=== PATIENT | female | born 1940 | race Caucasian/White ===

== ENCOUNTER 2019-03-30 07:07 | Outpatient (CLI) | payer SELFPAY | END 2019-03-30 07:08 | disposition home or self-care (01) | LOC: LAB 07:07 | DX: Z01.89 Encounter for other specified special examinations (principal) | CPT/HCPCS: 36415 ==

== ENCOUNTER 2021-11-09 01:10 | Outpatient (CLI) | payer MEDICARE | END 2021-11-09 01:11 | disposition critical access hospital (66) | LOC: EMS 01:10 | DX: Z04.3 Encounter for examination and observation following other accident (principal); M25.552 Pain in left hip | CPT/HCPCS: A0425; A0427 ==

== ENCOUNTER 2021-11-09 01:20 | Inpatient (IN) | payer MEDICARE ==
[2021-11-09] MEDS ORDERED: LORazepam 2 MG/ML VIAL IVP STA (01:30)
[2021-11-09] MEDS ORDERED: SODIUM CHLORIDE 0.9% 1,000 ML IV STA ×2 (01:30→03:32)
[2021-11-09] MEDS ORDERED: fentaNYL 100 MCG/2 ML VIAL IVP STA (01:35)
[2021-11-09 02:55] LABS: BASOPHILS % (AUTO) 0.1 %; EOSINOPHILS # (AUTO) 0.2 10^3/uL (0.0-0.7); EOSINOPHILS % (AUTO) 1.6 %; HCT - HEMATOCRIT 37.8 % (37.0-47.0); HGB - HEMOGLOBIN 13.1 g/dL (12.0-16.0); LYMPHOCYTES # (AUTO) 0.4 10^3/uL (1.5-3.5); LYMPHOCYTES % (AUTO) 2.7 %; MEAN CORPUSCULAR HGB CONC 34.7 g/dL (32.0-36.0); MEAN CORPUSCULAR VOLUME 92.4 fL (81.0-99.0); MEAN PLATELET VOLUME 10.1 fL (7.9-10.8); MONOCYTES # (AUTO) 0.7 10^3/uL (0.0-1.0); NEUTROPHILS # (AUTO) 12.2 10^3/uL (1.5-6.6); NEUTROPHILS % (AUTO) 90.2 %; PLT - PLATELET COUNT 197 10^3/uL (130-450); RED BLOOD COUNT 4.09 10^6/uL (4.20-5.40); RED CELL DISTRIBUTION WIDTH 12.6 % (12.0-15.0); WHITE BLOOD COUNT 13.6 x10^3/uL (4.8-10.8)
[2021-11-09 03:03] LABS: ALBUMIN/GLOBULIN RATIO 1.7 (1.0-2.2); BILIRUBIN,TOTAL 1.1 mg/dL (0.2-1.0); CALCIUM 8.8 mg/dL (8.5-10.3); CREATININE 0.6 mg/dL (0.4-1.0); POTASSIUM 3.4 mmol/L (3.5-5.0); TOTAL PROTEIN 6.3 g/dL (6.7-8.2)
[2021-11-09 03:39] LABS: B. PARAPERTUSSIS- RESP PCR PAN NOT DETECTED; B. PERTUSSIS- RESP PCR PANEL NOT DETECTED; C. PNEUMONIAE- RESP PCR PANEL NOT DETECTED; CORONAVIRUS 229E-RESP PCR NOT DETECTED; CORONAVIRUS HKU1-RESP PCR NOT DETECTED; CORONAVIRUS NL63-RESP PCR NOT DETECTED; CORONAVIRUS OC43-RESP PCR NOT DETECTED; HUMAN METAPNEUMOVIRUS NOT DETECTED; INFLUENZA A- RESP PCR PANEL NOT DETECTED; INFLUENZA B - RESP PCR PANEL NOT DETECTED; M. PNEUMONIAE- RESP PCR PANEL NOT DETECTED; PARAINFLUENZA VIRUS 1 NOT DETECTED; PARAINFLUENZA VIRUS 2 NOT DETECTED; PARAINFLUENZA VIRUS 3 NOT DETECTED; PARAINFLUENZA VIRUS 4 NOT DETECTED; RHINOVIRUS/ENTEROVIRUS NOT DETECTED; RSV- RESP PCR PANEL NOT DETECTED; SARS-CoV-2 -RESP PCR PANEL NOT DETECTED
--- NOTE | 2021-11-09 03:48 | ED Physician Documentation ---
PD HPI LOWER EXT INJURY - Stated complaint Stated Complaint: GLF, LEFT HIP AND BODY PAIN - Chief complaint Chief Complaint: Trauma Ext - History obtained from History obtained from: Patient - Additional information Additional information: Patient is 80-year-old female presenting to the emergency department with left- sided hip pain after fall that occurred approximately 12 hours ago. Brought in by EMS. Patient reports was walking and slipped on her carpet landing on her left side. Denies head trauma or loss of consciousness. Denies use of blood thinning medications. Reports refused to allow her son to help her up, stating that she intended to do so herself. Reports that she does not take medications and does not regularly follow with a doctor. Review of Systems Ten Systems: 10 systems reviewed and negative Constitutional: denies: Fever Eyes: denies: Loss of vision Ears: denies: Loss of hearing Nose: denies: Rhinorrhea / runny nose Throat: denies: Dental pain / toothache Cardiac: denies: Chest pain / pressure Respiratory: denies: Dyspnea GI: denies: Abdominal Pain : denies: Dysuria Skin: denies: Rash Musculoskeletal: denies: Neck pain PD PAST MEDICAL HISTORY - Past Medical History Past Medical History: No Respiratory: Other Other Past Medical History: sensitivies to medications, smells and electronics. - Past Surgical History Past Surgical History: No - Present Medications Home Medications: Ambulatory Orders Medication Instructions Recorded Confirmed No Known Home Medications 11/09/21 11/09/21 - Allergies Allergies/Adverse Reactions: Allergies Allergy/AdvReac Type Severity Reaction Status Date / Time chlorpheniramine Allergy Unknown Verified 11/09/21 01:42 [From Ornade] haloperidol [From Haldol] Allergy Unknown Verified 11/09/21 01:42 ketamine Allergy Unknown Verified 11/09/21 01:41 phenylpropanolamine Allergy Unknown Verified 11/09/21 01:42 [From Ornade] propylene glycol Allergy Unknown Verified 11/09/21 01:43 paint thinners Allergy Respiratory Uncoded 11/09/21 01:31 - Social History Does the pt smoke?: No Smoking Status: Never smoker Does the pt drink ETOH?: No Does the pt have substance abuse?: No - Immunizations Immunizations are current?: No - POLST Patient has POLST: No PD ED PE NORMAL - General General: Alert and oriented X 3 - HEENT HEENT: Atraumatic - Neck Neck: Supple, no meningeal sign - Cardiac Cardiac: RRR, No gallop - Respiratory Respiratory: No respiratory distress, Clear bilaterally - Abdomen Abdomen: Normal bowel sounds, Soft, Non tender PD ED PE EXPANDED - Extremities Extremities: Other (Tenderness to palpation along the left hip. Notable internal rotation and shortening of the left lower extremity) Results - Vitals Vitals: Vital Signs - 24 hr 11/09/21 11/09/21 11/09/21 01:20 04:08 06:00 Temperature 36.8 C Heart Rate 76 64 64 Respiratory 18 16 16 Rate Blood Pressure 158/87 H 130/65 135/73 H O2 Saturation 96 95 95 Oxygen O2 Source Room air - Labs Labs: Laboratory Tests 11/09/21 11/09/21 11/09/21 02:40 02:40 02:40 WBC 13.6 H RBC 4.09 L Hgb 13.1 Hct 37.8 MCV 92.4 MCH 32.0 H MCHC 34.7 RDW 12.6 Plt Count 197 MPV 10.1 Neut # (Auto) 12.2 H Lymph # (Auto) 0.4 L [place] # (Auto) 0.7 Eos # (Auto) 0.2 Baso # (Auto) 0.0 Absolute Nucleated RBC 0.00 Nucleated RBC % 0.0 APTT 27.9 Sodium 127 L Potassium 3.4 L Chloride 90 L Carbon Dioxide 27 Anion Gap 10.0 BUN 20 Creatinine 0.6 Estimated GFR (MDRD) 96 Glucose 138 H Lactic Acid Calcium 8.8 Total Bilirubin 1.1 H AST 42 ALT 43 Alkaline Phosphatase 70 Total Creatine Kinase 918 H Total Protein 6.3 L Albumin 4.0 Globulin 2.3 Albumin/Globulin Ratio 1.7 Lipase 20 L Nasal Adenovirus (PCR) Nasal B. parapertussis DNA (PCR) Nasal Coronavir 229E PCR Nasal Coronavir HKU1 PCR Nasal Coronavir NL63 PCR Nasal Coronavir OC43 PCR Nasal Enterovir/Rhinovir PCR Nasal Influenza B PCR Nasal Influenza A PCR Nasal Parainfluen 1 PCR Nasal Parainfluen 2 PCR Nasal Parainfluen 3 PCR Nasal Parainfluen 4 PCR Nasal RSV (PCR) Nasal B.pertussis DNA PCR Nasal C.pneumoniae (PCR) Michele Human Metapneumo PCR Nasal M.pneumoniae (PCR) Nasal SARS-CoV-2 (PCR) 11/09/21 11/09/21 02:40 02:48 WBC RBC Hgb Hct MCV MCH MCHC RDW Plt Count MPV Neut # (Auto) Lymph # (Auto) [place] # (Auto) Eos # (Auto) Baso # (Auto) Absolute Nucleated RBC Nucleated RBC % APTT Sodium Potassium Chloride Carbon Dioxide Anion Gap BUN Creatinine Estimated GFR (MDRD) Glucose Lactic Acid 1.0 Calcium Total Bilirubin AST ALT Alkaline Phosphatase Total Creatine Kinase Total Protein Albumin Globulin Albumin/Globulin Ratio Lipase Nasal Adenovirus (PCR) NOT DETECTED Nasal B. parapertussis DNA (PCR) NOT DETECTED Nasal Coronavir 229E PCR NOT DETECTED Nasal Coronavir HKU1 PCR NOT DETECTED Nasal Coronavir NL63 PCR NOT DETECTED Nasal Coronavir OC43 PCR NOT DETECTED Nasal Enterovir/Rhinovir PCR NOT DETECTED Nasal Influenza B PCR NOT DETECTED Nasal Influenza A PCR NOT DETECTED Nasal Parainfluen 1 PCR NOT DETECTED Nasal Parainfluen 2 PCR NOT DETECTED Nasal Parainfluen 3 PCR NOT DETECTED Nasal Parainfluen 4 PCR NOT DETECTED Nasal RSV (PCR) NOT DETECTED Nasal B.pertussis DNA PCR NOT DETECTED Nasal C.pneumoniae (PCR) NOT DETECTED Michele Human Metapneumo PCR NOT DETECTED Nasal M.pneumoniae (PCR) NOT DETECTED Nasal SARS-CoV-2 (PCR) NOT DETECTED PD MEDICAL DECISION MAKING - ED course Complexity details: reviewed results, d/w patient ED course: Aunts to the emergency department with left-sided hip pain and inability to ambulate after ground-level fall that occurred approximately 12 hours ago. Acutely distressed on arrival to the emergency department and we had a great deal of difficulty getting her off of the back brace. She had notable tenderness along her left hip and rotation and shortening of the left lower extremity. Palpable pulses with normal sensation distal to the site of injury with no indications of neurovascular compromise. She refused head CT in the emergency department stating that she did not need it because she did not hit her head. I did try to express my concern that it 80 years old she has a high risk for minimally traumatic head injury including intracranial bleeding due to injury to bridging veins. She verbalized understanding of this and continued to decline CT of her head or cervical spine. X-rays of her hip demonstrated a left comminuted intertrochanteric hip fracture. I communicated these findings directly with the patient and reviewed imaging with her at bedside. Initially she declined all labs and other testing however I did explain that it would be necessary in order to ensure that she is medically well and has been screened appropriately for Covid for hospitalization for eventual evaluation by orthopedic surgery. Labs did demonstrate a hyponatremia of uncertain chronicity as well as an elevated creatinine Needs consistent with a very low level or developing rhabdomyolysis. She was given IV hydration in the emergency department. Her renal function was within a normal limit. Orthopedic consultation is not available this evening however will be available first thing in the a.m. I will be signing this patient out to the oncoming physician, please see their documentation for further detail. Departure - Departure Clinical Impression: Hip fracture, Elevated CK
[2021-11-09 06:51] LABS: BILIRUBIN,URINE NEGATIVE (NEGATIVE); GLUCOSE, URINE (UA) NEGATIVE (NEGATIVE); KETONES,URINE (UA) 15 mg/dL (NEGATIVE); LEUKOCYTE ESTERASE, URINE NEGATIVE (NEGATIVE); NITRITE,URINE NEGATIVE (NEGATIVE); OCCULT BLOOD,URINE NEGATIVE (NEGATIVE); PROTEIN,URINE NEGATIVE (NEGATIVE); UROBILINOGEN,URINE 0.2 (NORMAL) E.U./dL (NORMAL)
[2021-11-09 06:53] LABS: CLARITY,URINE CLEAR (CLEAR)
--- NOTE | 2021-11-09 07:42 | XRAY Report ---
PROCEDURE: Hip w/Pelvis 2-3V LT INDICATIONS: Left hip pain, s/p fall TECHNIQUE: AP pelvis with lateral view(s) of the hip(s). COMPARISON: None. FINDINGS: Bones: There is a comminuted displaced, angulated, slightly foreshortened intertrochanteric fracture of the left hip. Pelvic ring appears intact. No suspicious bony lesions. Mild degenerative changes of the femoral acetabular joints. Bony demineralization. Degenerative changes of the lumbar spine inc ompletely evaluated. Soft tissues: The visualized bowel gas pattern is normal. No suspicious soft tissue calcifications. Catheter tubing. IMPRESSION: Comminuted, displaced, angulated, and foreshortened intertrochanteric fracture of the left hip. Agree with preliminary report. Reviewed by: Moose Frias DO on 11/09/2021 6:41 AM [facility]ION Approved by: Moose Frias DO on 11/09/2021 6:41 AM DION Station ID: [id number]
[2021-11-09] MEDS ORDERED: ONDANSETRON 4 MG/2 ML VIAL IVP PRN (08:02)
[2021-11-09] MEDS ORDERED: SODIUM CHLORIDE FLUSH 0.9% 10 ML SYRINGE IVP PRN (08:02)
[2021-11-09] MEDS ORDERED: ONDANSETRON ODT 4 MG TABLET TL PRN (08:02)
--- NOTE | 2021-11-09 08:03 | ED Physician Documentation ---
ED Addendum - Addendum Addendum: 11/09/21 08:02 80-year-old woman with isolated left intertrochanteric hip fracture after a fall yesterday with very mild rhabdomyolysis. Sodium 127 of unclear chronicity. Plan at shift change from Dr. Richards was to consult orthopedics and admit. I spoke with Dr. Hairston who agrees to consult and will fix tomorrow. Spoke with Dr. Kwong for admission at 8 AM. No bed immediately available in the hospital but she will write orders and the patient will board until a bed is available. Disposition: Admitted Condition: serious, but stable Diagnosis 1. Left intertrochanteric hip fracture 2. Moderate hyponatremia of unclear chronicity 3. Mild rhabdomyolysis
[2021-11-09] MEDS: SODIUM CHLORIDE FLUSH 0.9% 10 ML SYRINGE IVP SCH ×2 (10:29→17:36)
[2021-11-09] MEDS: SODIUM CHLORIDE 0.9% 1,000 ML IV SCH ×2 (10:30→21:48)
[2021-11-09] MEDS: CHOLECALCIFEROL 400 UNIT TABLET PO SCH (10:31)
--- NOTE | 2021-11-09 12:45 | HISTORY & PHYSICAL EXAMINATION ---
HPI - History Obtained From History obtained from: Patient, Family Exam limitations: No limitations - History of Present Illness HPI Comment/Other: This is an 80-year-old woman who fell yesterday early afternoon at home. She was going into a closet and apparently tripped over some slippers and fell onto her left side hitting her left hip and shoulder. She cannot bear weight on the left leg and had a lot of pain to the left upper thigh and hip area after the fall. She denies chest pain, shortness of breath, syncope, dizziness or loss of consciousness associated with the fall. She had some shoulder discomfort on the left side but this has resolved. All of her pain is to the left upper thigh. She denies previous problems with the left hip. She is a community ambulator and normally does not use any walking aid. She enjoys gardening and outdoor activities when she can. She is a , is independent in activities of daily living and lives with her son. Her general health has been very good. She denies any major medical problems, is a non-smoker and does not use alcohol. She has not received Covid vaccination. She is relatively comfortable, no acute distress.She denies myocardial infarction, cerebrovascular accident, diabetes, d eep venous thrombosis, pulmonary embolus, bleeding diathesis, liver or kidney disease. PMH/PSH - Past Medical History Respiratory: positive: Other Other Past Medical History: sensitivies to medications, smells and electronics. Social & Family Hx - Social History Does the pt smoke?: No Smoking Status: Never smoker Does the pt drink ETOH?: No Does the pt have substance abuse?: No - POLST Patient has POLST: No Meds/Allgy - Home Medications Home Medications: Ambulatory Orders Medication Instructions Recorded Confirmed No Known Home Medications 11/09/21 11/09/21 - Allergies Allergies/Adverse Reactions: Allergies Allergy/AdvReac Type Severity Reaction Status Date / Time chlorpheniramine Allergy Unknown Verified 11/09/21 01:42 [From Ornade] haloperidol [From Haldol] Allergy Unknown Verified 11/09/21 01:42 ketamine Allergy Unknown Verified 11/09/21 01:41 phenylpropanolamine Allergy Unknown Verified 11/09/21 01:42 [From Ornade] propylene glycol Allergy Unknown Verified 11/09/21 01:43 paint thinners Allergy Respiratory Uncoded 11/09/21 01:31 Exam - Vital Signs Vital Signs: Vital Signs x48h Temp Pulse Resp BP Pulse Ox 11/09/21 10:00 65 19 125/78 99 11/09/21 08:00 36.6 C 76 18 155/90 H 99 11/09/21 06:00 64 16 135/73 H 95 - Physical Exam General Appearance: positive: No acute distress Eyes Bilateral: positive: Normal inspection Respiratory: positive: Chest non-tender Cardiovascular: positive: Regular rate & rhythm Peripheral Pulses: positive: 2+ Abdomen: positive: Non-tender Skin: positive: Color nml, No rash, Warm, Dry Neurologic/Psychiatric: positive: Oriented x3, Motor nml, Sensation nml Comments/Other: Extremity examination. Upper extremities: She moves the upper extremities actively well without pain. There is no clinical deformity or tenderness upper extremity. Lower extremities: Right lower extremity without pain, tenderness or deformity. Left leg shows shortening, flexion and external rotation alignment, marked pain with any attempted passive movement of left hip. There is no sign of hematoma to left hip. Skin is intact left hip. Neurovascular intact left leg. Left knee and left leg is nontender Results - Lab Results Fish Bones: 11/09/21 02:40 11/09/21 02:40 Other Lab Results: Lab Results x24hrs 11/09/21 11/09/21 11/09/21 Range/Units 06:35 02:48 02:40 WBC (4.8-10.8) x10^3/uL RBC (4.20-5.40) 10^6/uL Hgb (12.0-16.0) g/dL Hct (37.0-47.0) % MCV (81.0-99.0) fL MCH (27.0-31.0) pg MCHC (32.0-36.0) g/dL RDW (12.0-15.0) % Plt Count (130-450) 10^3/uL MPV (7.9-10.8) fL Neut # (Auto) (1.5-6.6) 10^3/uL Lymph # (Auto) (1.5-3.5) 10^3/uL [place] # (Auto) (0.0-1.0) 10^3/uL Eos # (Auto) (0.0-0.7) 10^3/uL Baso # (Auto) (0.0-0.1) 10^3/uL Absolute Nucleated RBC x10^3/uL Nucleated RBC % /100WBC APTT (24.9-33.3) secs Sodium (135-145) mmol/L Potassium (3.5-5.0) mmol/L Chloride (101-111) mmol/L Carbon Dioxide (21-32) mmol/L Anion Gap (6-13) BUN (6-20) mg/dL Creatinine (0.4-1.0) mg/dL Estimated GFR (MDRD) (>89) Glucose (70-100) mg/dL Lactic Acid 1.0 (0.5-2.2) mmol/L Calcium (8.5-10.3) mg/dL Total Bilirubin (0.2-1.0) mg/dL AST (10-42) IU/L ALT (10-60) IU/L Alkaline Phosphatase (42-121) IU/L Total Creatine Kinase (22-269) IU/L Total Protein (6.7-8.2) g/dL Albumin (3.2-5.5) g/dL Globulin (2.1-4.2) g/dL Albumin/Globulin Ratio (1.0-2.2) Lipase (22-51) U/L Urine Color YELLOW Urine Clarity CLEAR (CLEAR) Urine pH 6.0 (5.0-7.5) PH Ur Specific [place] 1.015 (1.002-1.030) Urine Protein NEGATIVE (NEGATIVE) mg/dL Urine Glucose (UA) NEGATIVE (NEGATIVE) mg/dL Urine Ketones 15 H (NEGATIVE) mg/dL Urine Occult Blood NEGATIVE (NEGATIVE) Urine Nitrite NEGATIVE (NEGATIVE) Urine Bilirubin NEGATIVE (NEGATIVE) Urine Urobilinogen 0.2 (NORMAL) (NORMAL) E.U./dL Ur Leukocyte Esterase NEGATIVE (NEGATIVE) Ur Microscopic Review NOT INDICATED Urine Culture Comments NOT INDICATED Nasal Adenovirus (PCR) NOT DETECTED Nasal B. parapertussis DNA (PCR) NOT DETECTED Nasal Coronavir 229E PCR NOT DETECTED Nasal Coronavir HKU1 PCR NOT DETECTED Nasal Coronavir NL63 PCR NOT DETECTED Nasal Coronavir OC43 PCR NOT DETECTED Nasal Enterovir/Rhinovir PCR NOT DETECTED Nasal Influenza B PCR NOT DETECTED Nasal Influenza A PCR NOT DETECTED Nasal Parainfluen 1 PCR NOT DETECTED Nasal Parainfluen 2 PCR NOT DETECTED Nasal Parainfluen 3 PCR NOT DETECTED Nasal Parainfluen 4 PCR NOT DETECTED Nasal RSV (PCR) NOT DETECTED Nasal B.pertussis DNA PCR NOT DETECTED Nasal C.pneumoniae (PCR) NOT DETECTED Michele Human Metapneumo PCR NOT DETECTED Nasal M.pneumoniae (PCR) NOT DETECTED Nasal SARS-CoV-2 (PCR) NOT DETECTED 11/09/21 11/09/21 11/09/21 Range/Units 02:40 02:40 02:40 WBC 13.6 H (4.8-10.8) x10^3/uL RBC 4.09 L (4.20-5.40) 10^6/uL Hgb 13.1 (12.0-16.0) g/dL Hct 37.8 (37.0-47.0) % MCV 92.4 (81.0-99.0) fL MCH 32.0 H (27.0-31.0) pg MCHC 34.7 (32.0-36.0) g/dL RDW 12.6 (12.0-15.0) % Plt Count 197 (130-450) 10^3/uL MPV 10.1 (7.9-10.8) fL Neut # (Auto) 12.2 H (1.5-6.6) 10^3/uL Lymph # (Auto) 0.4 L (1.5-3.5) 10^3/uL [place] # (Auto) 0.7 (0.0-1.0) 10^3/uL Eos # (Auto) 0.2 (0.0-0.7) 10^3/uL Baso # (Auto) 0.0 (0.0-0.1) 10^3/uL Absolute Nucleated RBC 0.00 x10^3/uL Nucleated RBC % 0.0 /100WBC APTT 27.9 (24.9-33.3) secs Sodium 127 L (135-145) mmol/L Potassium 3.4 L (3.5-5.0) mmol/L Chloride 90 L (101-111) mmol/L Carbon Dioxide 27 (21-32) mmol/L Anion Gap 10.0 (6-13) BUN 20 (6-20) mg/dL Creatinine 0.6 (0.4-1.0) mg/dL Estimated GFR (MDRD) 96 (>89) Glucose 138 H (70-100) mg/dL Lactic Acid (0.5-2.2) mmol/L Calcium 8.8 (8.5-10.3) mg/dL Total Bilirubin 1.1 H (0.2-1.0) mg/dL AST 42 (10-42) IU/L ALT 43 (10-60) IU/L Alkaline Phosphatase 70 (42-121) IU/L Total Creatine Kinase 918 H (22-269) IU/L Total Protein 6.3 L (6.7-8.2) g/dL Albumin 4.0 (3.2-5.5) g/dL Globulin 2.3 (2.1-4.2) g/dL Albumin/Globulin Ratio 1.7 (1.0-2.2) Lipase 20 L (22-51) U/L Urine Color Urine Clarity (CLEAR) Urine pH (5.0-7.5) PH Ur Specific [place] (1.002-1.030) Urine Protein (NEGATIVE) mg/dL Urine Glucose (UA) (NEGATIVE) mg/dL Urine Ketones (NEGATIVE) mg/dL Urine Occult Blood (NEGATIVE) Urine Nitrite (NEGATIVE) Urine Bilirubin (NEGATIVE) Urine Urobilinogen (NORMAL) E.U./dL Ur Leukocyte Esterase (NEGATIVE) Ur Microscopic Review Urine Culture Comments Nasal Adenovirus (PCR) Nasal B. parapertussis DNA (PCR) Nasal Coronavir 229E PCR Nasal Coronavir HKU1 PCR Nasal Coronavir NL63 PCR Nasal Coronavir OC43 PCR Nasal Enterovir/Rhinovir PCR Nasal Influenza B PCR Nasal Influenza A PCR Nasal Parainfluen 1 PCR Nasal Parainfluen 2 PCR Nasal Parainfluen 3 PCR Nasal Parainfluen 4 PCR Nasal RSV (PCR) Nasal B.pertussis DNA PCR Nasal C.pneumoniae (PCR) Michele Human Metapneumo PCR Nasal M.pneumoniae (PCR) Nasal SARS-CoV-2 (PCR) - Diagnostic Imaging Results Diagnostic Imaging Results: negative: Read independently (X-rays of pelvis and left hip show displaced, unstable intertrochanteric fracture left hip with osteopenia) Impression/Plan - Problem List Problem List: Displaced intertrochanteric fracture left hip I discussed both nonoperative and operative treatment with her. No matter how this fracture is treated there is the potential for morbidity and mortality. In general, the risk of surgery is less than nonoperative treatment. I discussed the risk, goals and likelihood of achieving goals, morbidity and mortality with patient. I have also spoke to her son Doug Galarza over the telephone. Both are agreement to proceeding with surgery pending medical evaluation. The surgery would consist of an open reduction internal fixation of the left hip using intramedullary hip screw. The tentative plan would do her surgery tomorrow here at [facility]. The patient has signed informed consent and I also received verbal consent from her son over the telephone as well with plans for surgery tomorrow.
--- NOTE | 2021-11-09 12:54 | HISTORY & PHYSICAL EXAMINATION ---
Chief Complaint - Chief Complaint Chief Complaint: hip fracture History of Present Illness - Admitted From Admitted From:: emergency department - History of Present Illness HPI Comment/Other: Patient presented to ED early this morning following a fall in her home yesterday afternoon. She was in her walk in closet at home and tripped on her slippers falling and landing on her left shoulder and hip. She felt immediate pain of the hip and was able to drag herself to the door to alert her adult son who lives in the home. They did not seek immediate help as she thought the pain would resolve. The son called her brother who asked if the leg was shortened which it did appear and he alerted EMS at that point. She does not have any history of frequent falls. She is very independent at home and able to take care of her daily needs. She sees a beam machine operator in the are and generally manages health concerns with teas and herbal remedies. She is hesitant to take too much pain medication and would like to avoid many medications. She has spoken with the orthopedic surgeon and is prepared for surgical repair tomorrow. She denies any sensory loss or numbness of the limb.She denies any chest pain, dizziness, shortness or breath or swelling. History - Past Medical History Cardiovascular: reports: None Respiratory: reports: None, Other Neuro: reports: None Endocrine/Autoimmune: reports: None GI: reports: None Psych: reports: None Musculoskeletal: reports: None Other Past Medical History: sensitivies to medications, smells and electronics. - Family & Social History Family History Comment/Other: Patient's father had a pacemake no other known health condition and in his 80s. Patient's mother had no known health conditions and at age 94. Patient has one son who is healthy. She has one sister and 3 brothers, one of which has Parkinson's disease. Living arrangement: At home Social History Notes: Patient lives in single story home in [place] with her adult son. 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 She has lived in [place] since 2004. - Substance History Use: Uses substance without health or social issues: NONE (no tobacco, alcohol or other drug use.) - POLST Patient has POLST: No Meds/Allgy - Home Medications Home Medications: Ambulatory Orders Medication Instructions Recorded Confirmed No Known Home Medications 11/09/21 11/09/21 - Allergies Allergies/Adverse Reactions: Allergies Allergy/AdvReac Type Severity Reaction Status Date / Time chlorpheniramine Allergy Unknown Verified 11/09/21 01:42 [From Ornade] haloperidol [From Haldol] Allergy Unknown Verified 11/09/21 01:42 ketamine Allergy Unknown Verified 11/09/21 01:41 phenylpropanolamine Allergy Unknown Verified 11/09/21 01:42 [From Ornade] propylene glycol Allergy Unknown Verified 11/09/21 01:43 paint thinners Allergy Respiratory Uncoded 11/09/21 01:31 Review of Systems - Constitutional Constitutional: denies: Fatigue, Fever, Chills, Weakness, Night sweats, Weight loss - Eyes Eyes: denies: Blurred vision, Vision loss, Dipolpia - Ears, Nose & Throat Ears, Nose & Throat: denies: Hearing loss, Tinnitus, Vertigo - Cardiovascular Cariovascular: denies: Irregular heart rate, Palpitations, Chest pain, Lightheadedness, Syncope - Respiratory Respiratory: denies: Cough, Wheezing, SOB at rest, SOB with exertion - Gastrointestinal Gastrointestinal: denies: Abdominal pain, Constipation, Diarrhea, Nausea, Vomiting - Genitourinary Genitourinary: denies: Dysuria, Frequency, Urgency - Musculoskeletal Musculoskeletal: reports: Joint pain ((+) L hip pain). denies: Back pain, Joint swelling - Integumentary Integumentary: reports: Lesions (seborrheic keratosis on R upper flank), Lumps (lipoma of R scapular area). denies: Rash - Neurological Neurological: denies: General weakness, Headache, Dizziness, Numbness - Hematologic/Lymphatic Hematologic/Lymphatic: denies: Bruising, Petechiae, Bleeding tendencies Prior Level of Functionality: Patient describes being independently functional prior to her fall. She is able to take care of all her daily needs. She ambulates without assistance at her home. Exam - Vital Signs Vital Signs: Vital Signs x48h Temp Pulse Resp BP Pulse Ox 11/09/21 10:00 65 19 125/78 99 11/09/21 08:00 36.6 C 76 18 155/90 H 99 11/09/21 06:00 64 16 135/73 H 95 - Physical Exam General Appearance: positive: Other (patient is alert and comfortable in her bed. She is in no acute distress and eating lunch.) Eyes Bilateral: positive: Normal inspection, PERRL Neck: positive: Nml inspection, No JVD Respiratory: positive: Chest non-tender, No respiratory distress, Breath sounds nml Cardiovascular: positive: Regular rate & rhythm, No murmur, No gallop Peripheral Pulses: positive: 2+ Abdomen: positive: Non-tender, No distention, Tenderness Skin: positive: Color nml, Other (2 inch seborrheic keratotic lesion on R upper flank, also noted lesion below L earlobe that appears raised, crusted, some bloody crust.). negative: Cyanosis, Diaphoresis, Pallor Extremities: positive: Other (Tenderness of L hip, leg is shortened and internally rotated.) Conclusion/Plan - Problem List (1) Intertrochanteric fracture of left hip Conclusion/Plan: Orthopedic surgery has evaluated the patient and surgical repair is planned for tomorrow morning with Dr. Hairston that will include open reduction internal fixation of the left hip using intramedullary hip screw. She is in agreement with the current plan. She is very resistant to pain medication and other therapies. Had long discussion about the need for pre-operative lab work and she agrees. (2) Hyponatremia Conclusion/Plan: This is trending up currently at 130. Will continue to monitor. (3) Elevated CK Conclusion/Plan: Mildly elevated CK that would be consistent with her being down from her fall for 1/2 a day. Will continue to monitor and support with IV fluids. - Lab Results Fish Bones: 11/09/21 15:45 11/09/21 15:45
[2021-11-09] MEDS: CALCIUM CARBONATE CHEW 500 MG TABLET PO SCH ×2 (13:33→21:37)
[2021-11-09] MEDS: ACETAMINOPHEN 325 MG TABLET PO PRN ×3 (13:33→21:36)
[2021-11-09] MEDS: oxyCODONE 5 MG TABLET PO PRN ×3 (13:33→21:36)
[2021-11-09 15:57] LABS: BASOPHILS % (AUTO) 0.3 %; EOSINOPHILS % (AUTO) 0.1 %; HCT - HEMATOCRIT 35.2 % (37.0-47.0); HGB - HEMOGLOBIN 11.8 g/dL (12.0-16.0); LYMPHOCYTES # (AUTO) 0.6 10^3/uL (1.5-3.5); LYMPHOCYTES % (AUTO) 5.4 %; MEAN CORPUSCULAR HEMOGLOBIN 31.7 pg (27.0-31.0); MEAN CORPUSCULAR HGB CONC 33.5 g/dL (32.0-36.0); MEAN CORPUSCULAR VOLUME 94.6 fL (81.0-99.0); MEAN PLATELET VOLUME 10.5 fL (7.9-10.8); MONOCYTES # (AUTO) 0.7 10^3/uL (0.0-1.0); MONOCYTES % (AUTO) 5.8 %; NEUTROPHILS # (AUTO) 9.8 10^3/uL (1.5-6.6); NEUTROPHILS % (AUTO) 88.1 %; PLT - PLATELET COUNT 175 10^3/uL (130-450); RED BLOOD COUNT 3.72 10^6/uL (4.20-5.40); RED CELL DISTRIBUTION WIDTH 12.9 % (12.0-15.0); WHITE BLOOD COUNT 11.2 x10^3/uL (4.8-10.8)
[2021-11-09 16:10] LABS: ALBUMIN 3.4 g/dL (3.2-5.5); ALBUMIN/GLOBULIN RATIO 1.5 (1.0-2.2); BILIRUBIN,TOTAL 0.9 mg/dL (0.2-1.0); CALCIUM 8.6 mg/dL (8.5-10.3); CREATININE 0.6 mg/dL (0.4-1.0); POTASSIUM 3.8 mmol/L (3.5-5.0); TOTAL PROTEIN 5.6 g/dL (6.7-8.2)
[2021-11-09] MEDS ORDERED: KETOROLAC 15 MG/ML VIAL IVP PRN (21:20)
[2021-11-09] MEDS: HYDROmorphone 1 MG/ML CARPUJECT IVP PRN (21:48)
[2021-11-10] MEDS: SODIUM CHLORIDE FLUSH 0.9% 10 ML SYRINGE IVP SCH ×3 (02:44→17:43)
[2021-11-10] MEDS: oxyCODONE 5 MG TABLET PO PRN ×3 (06:12→20:43)
[2021-11-10] MEDS: ACETAMINOPHEN 325 MG TABLET PO PRN ×3 (06:12→17:28)
[2021-11-10] MEDS: CALCIUM CARBONATE CHEW 500 MG TABLET PO SCH ×3 (06:13→20:43)
[2021-11-10] MEDS: SODIUM CHLORIDE 0.9% 1,000 ML IV SCH ×2 (07:25→17:29)
[2021-11-10] MEDS: CHOLECALCIFEROL 400 UNIT TABLET PO SCH (08:15)
--- NOTE | 2021-11-10 09:21 | PROVIDER PROGRESS NOTE ---
Subjective - Prog Note Date Prog Note Date: 11/10/21 Prog Note Time: 09:19 - Subjective Pt reports feeling: No change Subjective: Patient feels well today. Her pain is being managed appropriately and she was able to rest overnight. She is in no acute distress. Objective - Vital Signs/Intake & Output Vital Signs: Vital Signs x48h Temp Pulse Resp BP 11/10/21 08:00 37.1 C 60 16 137/62 H Intake & Output: Intake & Output 11/07/21 11/08/21 11/09/21 11/10/21 23:59 23:59 23:59 23:59 Intake Total 3838.333 961.667 Output Total 1250 900 Balance 2588.333 61.667 - Objective General Appearance: positive: No acute distress, Alert Eyes Bilateral: positive: Normal inspection, PERRL Neck: positive: Nml inspection, No JVD Respiratory: positive: Chest non-tender, No respiratory distress, Breath sounds nml Cardiovascular: positive: Regular rate & rhythm, No murmur, No gallop Abdomen: positive: Non-tender, No organomegaly, Nml bowel sounds, No distention Skin: positive: Color nml, No rash, Other (2 inch seborrheic keratoses on R upper flank, crusting lesion below L ear lobe) Extremities: positive: Nml appearance, Other (tenderness of L hip, no signs of neurovascular compromise.) Neurologic/Psychiatric: positive: Oriented x3, Motor nml, Sensation nml, Mood/affect nml - Lab Results Fish Bones: 11/09/21 15:45 11/09/21 15:45 Other Labs: Lab Results x24hrs 11/09/21 11/09/21 Range/Units 15:45 15:45 WBC 11.2 H (4.8-10.8) x10^3/uL RBC 3.72 L (4.20-5.40) 10^6/uL Hgb 11.8 L (12.0-16.0) g/dL Hct 35.2 L (37.0-47.0) % MCV 94.6 (81.0-99.0) fL MCH 31.7 H (27.0-31.0) pg MCHC 33.5 (32.0-36.0) g/dL RDW 12.9 (12.0-15.0) % Plt Count 175 (130-450) 10^3/uL MPV 10.5 (7.9-10.8) fL Neut # (Auto) 9.8 H (1.5-6.6) 10^3/uL Lymph # (Auto) 0.6 L (1.5-3.5) 10^3/uL [place] # (Auto) 0.7 (0.0-1.0) 10^3/uL Eos # (Auto) 0.0 (0.0-0.7) 10^3/uL Baso # (Auto) 0.0 (0.0-0.1) 10^3/uL Absolute Nucleated RBC 0.00 x10^3/uL Nucleated RBC % 0.0 /100WBC Sodium 130 L (135-145) mmol/L Potassium 3.8 (3.5-5.0) mmol/L Chloride 95 L (101-111) mmol/L Carbon Dioxide 28 (21-32) mmol/L Anion Gap 7.0 (6-13) BUN 15 (6-20) mg/dL Creatinine 0.6 (0.4-1.0) mg/dL Estimated GFR (MDRD) 96 (>89) Glucose 113 H (70-100) mg/dL Calcium 8.6 (8.5-10.3) mg/dL Total Bilirubin 0.9 (0.2-1.0) mg/dL AST 41 (10-42) IU/L ALT 39 (10-60) IU/L Alkaline Phosphatase 60 (42-121) IU/L Total Protein 5.6 L (6.7-8.2) g/dL Albumin 3.4 (3.2-5.5) g/dL Globulin 2.2 (2.1-4.2) g/dL Albumin/Globulin Ratio 1.5 (1.0-2.2) Assessment/Plan - Problem List (1) Intertrochanteric fracture of left hip Impression: Conclusion/Plan: Orthopedic surgery has evaluated the patient and surgical repair is planned for later today with Dr. Hairston that will include open reduction internal fixation of the left hip using intramedullary hip screw. She is in agreement with the current plan. She is very resistant to pain medication and other therapies. Had long discussion about the need for pre-operative lab work and she agrees. She is aware of post operative pain management and anticoagulation and expresses agreement with both of these interventions. (2) Hyponatremia Conclusion/Plan: This is trending up currently at 130. Will continue to monitor. (3) Elevated CK Conclusion/Plan: Mildly elevated CK that would be consistent with her being down from her fall for 1/2 a day. Not elevated enough to be consistent with rhabdomyolysis and patient is currently asymptomatic. Will continue to monitor and support with IV fluids.
--- NOTE | 2021-11-10 11:51 | ANESTHESIA ---
Pre-Anesthesia VS, & Labs - Diagnosis left hip fracture - Procedure left hip IM nailing Vital Signs: Temp Pulse Resp BP Pulse Ox 37.1 C 60 16 137/62 H 95 11/10/21 08:00 11/10/21 08:00 11/10/21 08:00 11/10/21 08:00 11/10/21 00:01 Height: 5 ft 8 in Weight (kg): 60 kg Body Mass Index: 20.1 BMI Classification: Healthy weight - NPO >8 hours - Is Patient ?: No - Lab Results Current Lab Results: Laboratory Tests 11/09/21 15:45: Sodium 130 L, Potassium 3.8, Chloride 95 L, Carbon Dioxide 28, Anion Gap 7.0, BUN 15, Creatinine 0.6, Estimated GFR (MDRD) 96, Glucose 113 H, Calcium 8.6, Total Bilirubin 0.9, AST 41, ALT 39, Alkaline Phosphatase 60, Total Protein 5.6 L, Albumin 3.4, Globulin 2.2, Albumin/Globulin Ratio 1.5 11/09/21 15:45: WBC 11.2 H, RBC 3.72 L, Hgb 11.8 L, Hct 35.2 L, MCV 94.6, MCH 31.7 H, MCHC 33.5, RDW 12.9, Plt Count 175, MPV 10.5, Neut # (Auto) 9.8 H, Lymph # (Auto) 0.6 L, [place] # (Auto) 0.7, Eos # (Auto) 0.0, Baso # (Auto) 0.0, Absolute Nucleated RBC 0.00, Nucleated RBC % 0.0 11/09/21 02:40: Lactic Acid 1.0 11/09/21 02:40: Sodium 127 L, Potassium 3.4 L, Chloride 90 L, Carbon Dioxide 27, Anion Gap 10.0, BUN 20, Creatinine 0.6, Estimated GFR (MDRD) 96, Glucose 138 H, Calcium 8.8, Total Bilirubin 1.1 H, AST 42, ALT 43, Alkaline Phosphatase 70, Total Creatine Kinase 918 H, Total Protein 6.3 L, Albumin 4.0, Globulin 2.3, Albumin/Globulin Ratio 1.7, Lipase 20 L 11/09/21 02:40: APTT 27.9 11/09/21 02:40: WBC 13.6 H, RBC 4.09 L, Hgb 13.1, Hct 37.8, MCV 92.4, MCH 32.0 H , MCHC 34.7, RDW 12.6, Plt Count 197, MPV 10.1, Neut # (Auto) 12.2 H, Lymph # (Auto) 0.4 L, [place] # (Auto) 0.7, Eos # (Auto) 0.2, Baso # (Auto) 0.0, Absolute Nucleated RBC 0.00, Nucleated RBC % 0.0 Fish Bones: 11/09/21 15:45 11/09/21 15:45 Home Medications and Allergies Home Medications: Ambulatory Orders No Known Home Medications 11/09/21 Active Medications Acetaminophen (Acetaminophen 325 Mg Tablet) 650 mg PO Q4HR PRN PRN Reason: Pain 1 to 4 Last Admin: 11/10/21 10:49 Dose: 650 mg Calcium Carbonate/Glycine (Calcium Carbonate Chew 500 Mg Tablet) 500 mg PO TID [facility] Last Admin: 11/10/21 06:13 Dose: 500 mg Cholecalciferol (Cholecalciferol 400 Unit Tablet) 800 unit PO DAILY [facility] Last Admin: 11/10/21 08:15 Dose: 800 unit Hydromorphone HCl (Hydromorphone 1 Mg/Ml Carpuject) 1 mg IVP Q2HR PRN PRN Reason: PAIN Last Admin: 11/09/21 21:48 Dose: 1 mg Sodium Chloride (Normal Saline 0.9%) 1,000 mls @ 100 mls/hr IV .Q10H [facility] Last Admin: 11/10/21 07:25 Dose: 100 mls/hr Ketorolac Tromethamine (Ketorolac 15 Mg/Ml Vial) 15 mg IVP Q6HR PRN PRN Reason: PAIN Stop: 11/14/21 21:19 Ondansetron HCl (Ondansetron Odt 4 Mg Tablet) 4 mg TL Q6HR PRN PRN Reason: Nausea / Vomiting Ondansetron HCl (Ondansetron 4 Mg/2 Ml Vial) 4 mg IVP Q6HR PRN PRN Reason: Nausea / Vomiting Oxycodone HCl (Oxycodone 5 Mg Tablet) 5 mg PO Q4HR PRN PRN Reason: Pain 5 to 7 Last Admin: 11/10/21 10:50 Dose: 5 mg Sodium Chloride (Sodium Chloride Flush 0.9% 10 Ml Syringe) 10 ml IVP PRN PRN PRN Reason: NEEDED PER PROVIDER ORDERS Sodium Chloride (Sodium Chloride Flush 0.9% 10 Ml Syringe) 10 ml IVP 0100,0900,1700 [facility] Last Admin: 11/10/21 08:15 Dose: Not Given No Known Home Medications 11/09/21 Allergies/Adverse Reactions: Allergies Allergy/AdvReac Type Severity Reaction Status Date / Time chlorpheniramine Allergy Unknown Verified 11/09/21 01:42 [From Ornade] haloperidol [From Haldol] Allergy Unknown Verified 11/09/21 01:42 ketamine Allergy Unknown Verified 11/09/21 01:41 phenylpropanolamine Allergy Unknown Verified 11/09/21 01:42 [From Ornade] propylene glycol Allergy Unknown Verified 11/09/21 01:43 paint thinners Allergy Respiratory Uncoded 11/09/21 01:31 Anes History & Medical History - Anesthetic History Anesthesia Complications: reports: No previous complications - Medical History Cardiovascular: reports: None Pulmonary: reports: None, Other Gastrointestinal: reports: None Urinary: reports: None Neuro: reports: None Musculoskeletal: reports: None Endocrine/Autoimmune: reports: None Blood Disorders: reports: None Skin: reports: None Smoking Status: Never smoker Psychosocial: reports: No issues indicated History of Cancer?: No Other Past Medical History: sensitivies to medications, smells and electronics. - Surgical History Eyes Ears Nose Throat (EENT): reports: Tonsil/Adenoidectomy Exam General: Alert, Oriented x3, Cooperative, No acute distress Dental: WNL Mouth Openin Fingerbreadth Neck Mobility: Reduced Mallampati classification: II Thyromental Distance: 4-6 cm Mental/Cognitive Status: Alert/Oriented X3, Normal for patient Plan Anesthesia Type: General (as back up), Spinal Consent for Procedure(s) Verified and Reviewed: Yes Code Status: Attempt Resuscitation ASA classification: 2-Mild systemic disease Is this case an emergency?: No
[2021-11-10] MEDS ORDERED: PROPOFOL 500 MG/50 ML 500 MG/50 ML VIAL ONE (12:01)
[2021-11-10] MEDS ORDERED: fentaNYL 100 MCG/2 ML VIAL ONE (12:06)
--- NOTE | 2021-11-10 12:30 | PHARMACY PROGRESS NOTE ---
- Best Possible Medication History Admit Date and Time: 11/09/21 0802 Processed by: Pharmacy Medication History completed: Yes Patient Interview: Completed As the person ultimately responsible for medication therapy, providers are able to order a medication from an existing home medication list in [facility] via the "Reconcile Routine" prior to Confirmation of that medication by client support representative. Such practice is discouraged except when the physician, in their clinical emmy gment, deems that a medical need exists for a medication without regard to previous use.
[2021-11-10] MEDS ORDERED: TRANEXAMIC ACID 1,000 MG/10 ML VIAL ONE (13:27)
[2021-11-10] MEDS ORDERED: ceFAZolin 1 GM VIAL ONE (13:27)
[2021-11-10] MEDS ORDERED: PHENYLEPHRINE 10 MG/ML VIAL ONE (13:58)
[2021-11-10] MEDS ORDERED: LACTATED RINGERS 1,000 ML IV ONE (15:34)
--- NOTE | 2021-11-10 15:40 | OPERATIVE REPORT ---
Operative Report - General Admit Date: 11/09/21 Procedure Date: 11/10/21 Planned Procedure: Open reduction internal fixation left hip intertrochanteric fracture Pre-Op Diagnosis: Displaced intertrochanteric fracture left hip Procedure Performed: Open duction internal fixation intertrochanteric fracture left hip with [employer] locked long intramedullary nail with integrated hip screw; 95/90 leg and integrated screw, 40 cm intramedullary nail with 2 distal locking screws Post Op Diagnosis: Same as preop diagnosis - Procedure Note Primary Surgeon: Oscar Hairston MD Anesthesia Provider: Columba Lopez CRNA Anesthesia Technique: Spinal Estimated Blood Loss (mL): 50 Findings: Displaced basilar femoral neck fracture with associated osteopenia left hip and femur Complications: None - Other Other Information/Narrative: Patient was brought to the operating room. She had received a spinal anesthetic. She was positioned on the [place] fracture table. The left leg was placed in boot traction with a sock placed over the skin of the foot. The right leg was placed in the well-leg bruno. The C-arm image intensifier was draped with a sterile drape. A vertical transparent barrier was applied after the left lower extremity was prepped and draped in sterile manner in the usual fashion. A timeout procedure was performed by the entire operating room team and all were in agreement. A 2 inch incision was made proximal to the greater trochanter. The subcutaneous tissue and fascia asaf was split in line with the incision. A curved sharp bone awl was used to make an entry hole to the tip of the left greater trochanter and centered in the midline on the lateral view. The 3.2 mm guidepin was inserted and intracanal reaming was done. A long intramedullary guide was inserted and measured approximately 42 cm. Reaming was performed up to 13 cm which was easy to do as the canal was wide. A 11.5 mm x 40 cm long Upton [employer]hew intramedullary nail was inserted and acted. It was seated with x-rays confirming good position. The lag screw guide was inserted through a 1.5 cm incision. A 3.2 guidepin was inserted into the femoral head in the midline on both AP and lateral views. The depth of the pin was measured and the pin was gently impacted into subchondral bone. Both long and short drill bits were made for the integrated screw. Reaming was done for the lag screw hole. A 95 mm lag screw was inserted and traction was released with full seating of the lag screw. The integrated screw was then inserted and the fracture was compressed. The fracture showed excellent alignment and position of internal fixation was also very good. The distal holes of the femur were failed with cortical screws using a freehand technique. Final imaging was obtained and showed good position of locking screws, sourav and lag screw as well as good alignment of the fracture. The wounds were irrigated. The subcutaneous tissue of the entry incision to the trochanter was closed with 2 oh strata fix. The skin was closed with 3-0 nylon. Silver impregnated Mepilex dressings were applied. She received 2 g of Ancef intravenously and tolerated the procedure well there was no clinical deformity to the left leg and the left hip was stable.
[2021-11-10] MEDS ORDERED: ONDANSETRON 4 MG/2 ML VIAL IVP PRN ×2 (15:48→16:25)
[2021-11-10] MEDS ORDERED: SODIUM CHLORIDE FLUSH 0.9% 10 ML SYRINGE IVP PRN (15:48)
[2021-11-10] MEDS ORDERED: ROPIVACAINE 0.5% PF 20 ML AMPULE ONE (16:10)
[2021-11-10] MEDS ORDERED: SODIUM CHLORIDE 0.9% 10 ML VIAL IVP ONE (16:10)
[2021-11-10] MEDS ORDERED: HYDROmorphone 0.5 MG/0.5 ML SYRINGE IVP PRN (16:25)
[2021-11-10] MEDS ORDERED: fentaNYL 100 MCG/2 ML VIAL IVP PRN (16:25)
[2021-11-10] MEDS ORDERED: NALOXONE 0.4 MG/ML VIAL IVP PRN (16:25)
[2021-11-10] MEDS ORDERED: ATROPINE ABBOJECT 1 MG/10 ML SYRINGE IVP PRN (16:25)
[2021-11-10] MEDS ORDERED: MORPHINE 2 MG/ML CARPUJECT IVP PRN (16:25)
--- NOTE | 2021-11-10 16:27 | ANESTHESIA POST OP EVALUATION ---
Anesthesia Post Eval - Post Anesthesia Eval Vitals: Last Vital Signs Temp 36.6 C 11/10/21 16:18 Pulse 73 11/10/21 16:25 Resp 19 11/10/21 16:25 BP 149/119 H 11/10/21 16:25 Pulse Ox 97 11/10/21 16:25 CV Function Including HR & BP: Stable Pain Control: Satisfactory Nausea & Vomiting: Negative Mental Status: Baseline Respiratory Status: Airway Patent Hydration Status: Satisfactory Anesthesia Complications: None
[2021-11-10] MEDS ORDERED: SODIUM CHLORIDE FLUSH 0.9% 10 ML SYRINGE IVP SCH (17:00)
[2021-11-10] MEDS ORDERED: LACTATED RINGERS 1,000 ML IV SCH (17:00)
--- NOTE | 2021-11-10 17:04 | XRAY Report ---
PROCEDURE: OR C-Arm Procedure INDICATIONS: left hip nailing, OR 3 TECHNIQUE: 4 spot fluoroscopic intraoperative images of the left femur were obtained. COMPARISON: Left hip radiographs 11/09/2021 FINDINGS: Fluoroscopic guidance was utilized for fixation of the previously seen left proximal femoral fracture . On the provided intraoperative spot fluoroscopic images, an intramedullary nail is seen in the left femur with proximal dynamic screws and distal locking screws. Hardware positioning appears appropria te. IMPRESSION: Status post internal fixation of the previously seen left proximal femoral fracture. Reviewed by: Darryn Anne MD on 11/10/2021 5:03 PM PST Approved by: Darryn Anne MD on 11/10/2021 5:03 PM PST Station ID: [id number]
[2021-11-10] MEDS: ACETAMINOPHEN 500 MG TABLET PO SCH (17:45)
[2021-11-10] MEDS: ethyl alcohoL 62% SWAB AMPULE NAS SCH (20:44)
[2021-11-10] MEDS: HYDROmorphone 1 MG/ML CARPUJECT IVP PRN (21:26)
[2021-11-10] MEDS: ceFAZolin 2 GM in SODIUM CHLORIDE 0.9% 100ML 100 ML IV SCH (21:27)
[2021-11-11] MEDS: ACETAMINOPHEN 500 MG TABLET PO SCH ×4 (00:08→19:03)
[2021-11-11] MEDS: HYDROmorphone 1 MG/ML CARPUJECT IVP PRN ×8 (00:09→22:16)
[2021-11-11] MEDS: SODIUM CHLORIDE FLUSH 0.9% 10 ML SYRINGE IVP SCH ×3 (01:08→17:26)
[2021-11-11] MEDS: SODIUM CHLORIDE 0.9% 1,000 ML IV SCH (03:30)
[2021-11-11] MEDS: CALCIUM CARBONATE CHEW 500 MG TABLET PO SCH ×3 (06:16→22:16)
[2021-11-11] MEDS: ceFAZolin 2 GM in SODIUM CHLORIDE 0.9% 100ML 100 ML IV SCH (06:17)
[2021-11-11 08:09] LABS: BASOPHILS % (AUTO) 0.3 %; EOSINOPHILS % (AUTO) 0.3 %; HCT - HEMATOCRIT 30.6 % (37.0-47.0); HGB - HEMOGLOBIN 10.3 g/dL (12.0-16.0); LYMPHOCYTES # (AUTO) 0.7 10^3/uL (1.5-3.5); LYMPHOCYTES % (AUTO) 5.3 %; MEAN CORPUSCULAR HEMOGLOBIN 31.8 pg (27.0-31.0); MEAN CORPUSCULAR HGB CONC 33.7 g/dL (32.0-36.0); MEAN CORPUSCULAR VOLUME 94.4 fL (81.0-99.0); MEAN PLATELET VOLUME 10.7 fL (7.9-10.8); MONOCYTES # (AUTO) 1.2 10^3/uL (0.0-1.0); MONOCYTES % (AUTO) 9.7 %; NEUTROPHILS # (AUTO) 10.6 10^3/uL (1.5-6.6); NEUTROPHILS % (AUTO) 84.1 %; PLT - PLATELET COUNT 140 10^3/uL (130-450); RED BLOOD COUNT 3.24 10^6/uL (4.20-5.40); RED CELL DISTRIBUTION WIDTH 12.9 % (12.0-15.0); WHITE BLOOD COUNT 12.6 x10^3/uL (4.8-10.8)
[2021-11-11 08:17] LABS: CALCIUM 8.1 mg/dL (8.5-10.3); CREATININE 0.6 mg/dL (0.4-1.0); POTASSIUM 3.6 mmol/L (3.5-5.0)
[2021-11-11] MEDS: polyethylene glycoL 3350 17 GM PACKET PO SCH (08:56)
[2021-11-11] MEDS: ethyl alcohoL 62% SWAB AMPULE NAS SCH ×2 (08:56→22:16)
[2021-11-11] MEDS: CHOLECALCIFEROL 400 UNIT TABLET PO SCH (08:56)
[2021-11-11] MEDS: ENOXAPARIN 40 MG/0.4 ML SYRINGE SUBQ SCH (08:56)
[2021-11-11] MEDS ORDERED: SODIUM CHLORIDE 0.9% 1,000 ML IV SCH (12:00)
--- NOTE | 2021-11-11 12:05 | PROVIDER PROGRESS NOTE ---
Assessment/Plan - Problem List (1) Intertrochanteric fracture of left hip Assessment/Plan: 11/11 Day 1 s/p of left hip repair. pt did have some special requirement, she decline to have Wise off, she decline to have Toradol PRN, she decline to have CXR. because she need oxygen s/p of surgery and continue elevated WBC, CXR was ordered. continue Pain control, continue PT and OT, continue Lovenox for DVT prophylaxis (2) Hyponatremia Conclusion/Plan: Na is 128, likely hypovolemia with hyponatremia, start with gentle IVF with NS, continue lab monitor. (3) Elevated CK Conclusion/Plan: slight elevate, new CK test is pending, continue gentle IVF and lab monitor - Current Meds Current Meds: Current Medications Generic Name Dose Route Start Last Admin Trade Name Freq PRN Reason Stop Dose Admin Acetaminophen 650 mg 11/09/21 08:02 11/10/21 17:28 Acetaminophen 325 Mg Tablet PO 650 mg Q4HR PRN Administration Pain 1 to 4 Acetaminophen 1,000 mg 11/10/21 18:00 11/11/21 06:16 Acetaminophen 500 Mg Tablet PO 1,000 mg Q6HR ARELI Administration Alcohol 1 amp 11/10/21 21:00 11/11/21 08:56 Ethyl Alcohol 62% Swab Ampule RAMONA 1 amp BID ARELI Administration Calcium Carbonate/Glycine 500 mg 11/09/21 14:00 11/11/21 06:16 Calcium Carbonate Chew 500 Mg Tablet PO 500 mg TID ARELI Administration Cholecalciferol 800 unit 11/09/21 09:00 11/11/21 08:56 Cholecalciferol 400 Unit Tablet PO 800 unit DAILY ARELI Administration Enoxaparin Sodium 40 mg 11/11/21 09:00 11/11/21 08:56 Enoxaparin 40 Mg/0.4 Ml Syringe SUBQ 40 mg DAILY ARELI Administration Hydromorphone HCl 1 mg 11/09/21 21:20 11/11/21 11:36 Hydromorphone 1 Mg/Ml Carpuject IVP 1 mg Q2HR PRN Administration PAIN Oxycodone HCl 5 mg 11/09/21 08:02 11/10/21 20:43 Oxycodone 5 Mg Tablet PO 5 mg Q4HR PRN Administration Pain 5 to 7 Polyethylene Glycol 17 gm 11/11/21 09:00 11/11/21 08:56 Polyethylene Glycol 3350 17 Gm Packet PO Not Given DAILY [facility] Sodium Chloride 10 ml 11/09/21 09:00 11/11/21 08:56 Sodium Chloride Flush 0.9% 10 Ml Syringe IVP 10 ml 0100,0900,1700 [facility] Administration - Lab Result Fish Bone Diagrams: 11/11/21 07:59 11/11/21 07:59 - Additional Planning My Orders: My Active Orders 11/11/21 07:47 Incentive Spirometry - RT [RC] .TID 11/11/21 09:00 Enoxaparin [Lovenox] 40 mg SUBQ DAILY 11/11/21 10:22 Wise Discontinuation [RC] ONCE 11/11/21 12:00 Sodium Chloride 0.9% [Normal Saline 0.9%] 1,000 ml IV 83.3 mls/hr 11/12/21 05:00 BMP - BASIC METABOLIC PANEL [CHEM] DAILYLAB CBC - COMP BLD CT W/AUTO DIFF [HEME] DAILYLAB 11/13/21 05:00 BMP - BASIC METABOLIC PANEL [CHEM] DAILYLAB CBC - COMP BLD CT W/AUTO DIFF [HEME] DAILYLAB 11/14/21 05:00 BMP - BASIC METABOLIC PANEL [CHEM] DAILYLAB CBC - COMP BLD CT W/AUTO DIFF [HEME] DAILYLAB 11/15/21 05:00 BMP - BASIC METABOLIC PANEL [CHEM] DAILYLAB CBC - COMP BLD CT W/AUTO DIFF [HEME] DAILYLAB 11/16/21 05:00 BMP - BASIC METABOLIC PANEL [CHEM] DAILYLAB CBC - COMP BLD CT W/AUTO DIFF [HEME] DAILYLAB 11/17/21 05:00 BMP - BASIC METABOLIC PANEL [CHEM] DAILYLAB CBC - COMP BLD CT W/AUTO DIFF [HEME] DAILYLAB Subjective - Subjective Patient Reports: Feeling Better, Resting Comfortably Objective Vital Signs: Vital Signs - 24 hr 11/10/21 11/10/21 11/10/21 15:34 15:40 15:45 Temperature 36.3 C L Heart Rate 67 70 68 Heart Rate [ Brachial] Respiratory 15 16 15 Rate Blood Pressure 137/109 H 138/114 H 134/106 H Blood Pressure [Right Brachial artery] O2 Saturation 95 95 95 11/10/21 11/10/21 11/10/21 15:50 15:55 16:08 Temperature 36.8 C 36.5 C Heart Rate 69 70 68 Heart Rate [ Brachial] Respiratory 15 15 14 Rate Blood Pressure 140/93 H 170/131 H 151/81 H Blood Pressure [Right Brachial artery] O2 Saturation 94 93 93 11/10/21 11/10/21 11/10/21 16:11 16:18 16:25 Temperature 36.6 C Heart Rate 68 65 73 Heart Rate [ Brachial] Respiratory 18 19 19 Rate Blood Pressure 164/89 H 163/92 H 149/119 H Blood Pressure [Right Brachial artery] O2 Saturation 94 97 97 11/10/21 11/10/21 11/10/21 16:30 16:40 17:10 Temperature 36.3 C L 37.0 C 36.7 C Heart Rate 65 Heart Rate [ 67 64 Brachial] Respiratory 19 20 16 Rate Blood Pressure 146/86 H Blood Pressure 154/82 H 174/68 H [Right Brachial artery] O2 Saturation 98 96 98 11/10/21 11/10/21 11/10/21 17:40 18:40 19:40 Temperature 36.7 C 36.6 C 37.0 C Heart Rate Heart Rate [ 65 69 71 Brachial] Respiratory 18 16 16 Rate Blood Pressure Blood Pressure 150/94 H 134/59 H 146/67 H [Right Brachial artery] O2 Saturation 97 98 96 11/10/21 11/11/21 11/11/21 21:33 00:26 06:23 Temperature 37.5 C 37 C Heart Rate Heart Rate [ 74 73 Brachial] Respiratory 18 18 18 Rate Blood Pressure Blood Pressure 134/68 H 129/66 [Right Brachial artery] O2 Saturation 97 93 93 11/11/21 11/11/21 07:32 11:40 Temperature 36.9 C 36.6 C Heart Rate Heart Rate [ 71 65 Brachial] Respiratory 17 16 Rate Blood Pressure Blood Pressure 123/56 L 141/67 H [Right Brachial artery] O2 Saturation 92 97 Oxygen O2 Source Room air I&O (Last 24 Hrs): Intake and Output Totals x24h 11/09/21 11/10/21 11/11/21 23:59 23:59 23:59 Intake Total 3838.333 2601.667 3195 Output Total 1250 3150 600 Balance 2588.333 -222.234 6089 General: Alert, Oriented x3, Cooperative, No acute distress HEENT: Atraumatic Neck: Supple Lymphatic: no adenopathy Neuro: Alert, Non Focal, Oriented Times 3 Cardiovascular: Regular rate, Normal S1, Normal S2 Respiratory: Chest non-tender, No respiratory distress Abdomen: Normal bowel sounds, Soft, No tenderness Extremities: Normal pulses - Results Results: Laboratory Results WBC 12.6 x10^3/uL (4.8-10.8) H 11/11/21 07:59 RBC 3.24 10^6/uL (4.20-5.40) L 11/11/21 07:59 Hgb 10.3 g/dL (12.0-16.0) L 11/11/21 07:59 Hct 30.6 % (37.0-47.0) L 11/11/21 07:59 MCV 94.4 fL (81.0-99.0) 11/11/21 07:59 MCH 31.8 pg (27.0-31.0) H 11/11/21 07:59 MCHC 33.7 g/dL (32.0-36.0) 11/11/21 07:59 RDW 12.9 % (12.0-15.0) 11/11/21 07:59 Plt Count 140 10^3/uL (130-450) 11/11/21 07:59 MPV 10.7 fL (7.9-10.8) 11/11/21 07:59 Neut # (Auto) 10.6 10^3/uL (1.5-6.6) H 11/11/21 07:59 Lymph # (Auto) 0.7 10^3/uL (1.5-3.5) L 11/11/21 07:59 [place] # (Auto) 1.2 10^3/uL (0.0-1.0) H 11/11/21 07:59 Eos # (Auto) 0.0 10^3/uL (0.0-0.7) 11/11/21 07:59 Baso # (Auto) 0.0 10^3/uL (0.0-0.1) 11/11/21 07:59 Absolute Nucleated RBC 0.00 x10^3/uL 11/11/21 07:59 Nucleated RBC % 0.0 /100WBC 11/11/21 07:59 APTT 27.9 secs (24.9-33.3) 11/09/21 02:40 Sodium 128 mmol/L (135-145) L 11/11/21 07:59 Potassium 3.6 mmol/L (3.5-5.0) 11/11/21 07:59 Chloride 95 mmol/L (101-111) L 11/11/21 07:59 Carbon Dioxide 27 mmol/L (21-32) 11/11/21 07:59 Anion Gap 6.0 (6-13) 11/11/21 07:59 BUN 12 mg/dL (6-20) 11/11/21 07:59 Creatinine 0.6 mg/dL (0.4-1.0) 11/11/21 07:59 Estimated GFR (MDRD) 96 (>89) 11/11/21 07:59 Glucose 116 mg/dL (70-100) H 11/11/21 07:59 Lactic Acid 1.0 mmol/L (0.5-2.2) 11/09/21 02:40 Calcium 8.1 mg/dL (8.5-10.3) L 11/11/21 07:59 Total Bilirubin 0.9 mg/dL (0.2-1.0) 11/09/21 15:45 AST 41 IU/L (10-42) 11/09/21 15:45 ALT 39 IU/L (10-60) 11/09/21 15:45 Alkaline Phosphatase 60 IU/L (42-121) 11/09/21 15:45 Total Creatine Kinase 918 IU/L (22-269) H 11/09/21 02:40 Total Protein 5.6 g/dL (6.7-8.2) L 11/09/21 15:45 Albumin 3.4 g/dL (3.2-5.5) 11/09/21 15:45 Globulin 2.2 g/dL (2.1-4.2) 11/09/21 15:45 Albumin/Globulin Ratio 1.5 (1.0-2.2) 11/09/21 15:45 Lipase 20 U/L (22-51) L 11/09/21 02:40 Urine Color YELLOW 11/09/21 06:35 Urine Clarity CLEAR (CLEAR) 11/09/21 06:35 Urine pH 6.0 PH (5.0-7.5) 11/09/21 06:35 Ur Specific [place] 1.015 (1.002-1.030) 11/09/21 06:35 Urine Protein NEGATIVE mg/dL (NEGATIVE) 11/09/21 06:35 Urine Glucose (UA) NEGATIVE mg/dL (NEGATIVE) 11/09/21 06:35 Urine Ketones 15 mg/dL (NEGATIVE) H 11/09/21 06:35 Urine Occult Blood NEGATIVE (NEGATIVE) 11/09/21 06:35 Urine Nitrite NEGATIVE (NEGATIVE) 11/09/21 06:35 Urine Bilirubin NEGATIVE (NEGATIVE) 11/09/21 06:35 Urine Urobilinogen 0.2 (NORMAL) E.U./dL (NORMAL) 11/09/21 06:35 Ur Leukocyte Esterase NEGATIVE (NEGATIVE) 11/09/21 06:35 Ur Microscopic Review NOT INDICATED 11/09/21 06:35 Urine Culture Comments NOT INDICATED 11/09/21 06:35 Nasal Adenovirus (PCR) NOT DETECTED 11/09/21 02:48 Nasal B. parapertussis DNA (PCR) NOT DETECTED 11/09/21 02:48 Nasal Coronavir 229E PCR NOT DETECTED 11/09/21 02:48 Nasal Coronavir HKU1 PCR NOT DETECTED 11/09/21 02:48 Nasal Coronavir NL63 PCR NOT DETECTED 11/09/21 02:48 Nasal Coronavir OC43 PCR NOT DETECTED 11/09/21 02:48 Nasal Enterovir/Rhinovir PCR NOT DETECTED 11/09/21 02:48 Nasal Influenza B PCR NOT DETECTED 11/09/21 02:48 Nasal Influenza A PCR NOT DETECTED 11/09/21 02:48 Nasal Parainfluen 1 PCR NOT DETECTED 11/09/21 02:48 Nasal Parainfluen 2 PCR NOT DETECTED 11/09/21 02:48 Nasal Parainfluen 3 PCR NOT DETECTED 11/09/21 02:48 Nasal Parainfluen 4 PCR NOT DETECTED 11/09/21 02:48 Nasal RSV (PCR) NOT DETECTED 11/09/21 02:48 Nasal B.pertussis DNA PCR NOT DETECTED 11/09/21 02:48 Nasal C.pneumoniae (PCR) NOT DETECTED 11/09/21 02:48 Ramona Human Metapneumo PCR NOT DETECTED 11/09/21 02:48 Nasal M.pneumoniae (PCR) NOT DETECTED 11/09/21 02:48 Nasal SARS-CoV-2 (PCR) NOT DETECTED 11/09/21 02:48 ABX Reporting Has patient been on IV antibiotics over the past 48 hours?: No Current Medications - Current Medications Current Medications: Active Medications Acetaminophen (Acetaminophen 325 Mg Tablet) 650 mg PO Q4HR PRN PRN Reason: Pain 1 to 4 Last Admin: 11/10/21 17:28 Dose: 650 mg Acetaminophen (Acetaminophen 500 Mg Tablet) 1,000 mg PO Q6HR [facility] Last Admin: 11/11/21 06:16 Dose: 1,000 mg Alcohol (Ethyl Alcohol 62% Swab Ampule) 1 amp RAMONA BID [facility] Last Admin: 11/11/21 08:56 Dose: 1 amp Calcium Carbonate/Glycine (Calcium Carbonate Chew 500 Mg Tablet) 500 mg PO TID [facility] Last Admin: 11/11/21 06:16 Dose: 500 mg Cholecalciferol (Cholecalciferol 400 Unit Tablet) 800 unit PO DAILY [facility] Last Admin: 11/11/21 08:56 Dose: 800 unit Enoxaparin Sodium (Enoxaparin 40 Mg/0.4 Ml Syringe) 40 mg SUBQ DAILY [facility] Last Admin: 11/11/21 08:56 Dose: 40 mg Hydromorphone HCl (Hydromorphone 1 Mg/Ml Carpuject) 1 mg IVP Q2HR PRN PRN Reason: PAIN Last Admin: 11/11/21 11:36 Dose: 1 mg Sodium Chloride (Normal Saline 0.9%) 1,000 mls @ 83.3 mls/hr IV .Q12H1M [facility] Stop: 11/12/21 00:00 Ketorolac Tromethamine (Ketorolac 15 Mg/Ml Vial) 15 mg IVP Q6HR PRN PRN Reason: PAIN Stop: 11/14/21 21:19 Ondansetron HCl (Ondansetron Odt 4 Mg Tablet) 4 mg TL Q6HR PRN PRN Reason: Nausea / Vomiting Ondansetron HCl (Ondansetron 4 Mg/2 Ml Vial) 4 mg IVP Q6HR PRN PRN Reason: Nausea / Vomiting Oxycodone HCl (Oxycodone 5 Mg Tablet) 5 mg PO Q4HR PRN PRN Reason: Pain 5 to 7 Last Admin: 11/10/21 20:43 Dose: 5 mg Polyethylene Glycol (Polyethylene Glycol 3350 17 Gm Packet) 17 gm PO DAILY [facility] Last Admin: 11/11/21 08:56 Dose: Not Given Sodium Chloride (Sodium Chloride Flush 0.9% 10 Ml Syringe) 10 ml IVP PRN PRN PRN Reason: NEEDED PER PROVIDER ORDERS Sodium Chloride (Sodium Chloride Flush 0.9% 10 Ml Syringe) 10 ml IVP 0100,0900,1700 [facility] Last Admin: 11/11/21 08:56 Dose: 10 ml No Known Home Medications 11/09/21
--- NOTE | 2021-11-11 15:44 | PROVIDER PROGRESS NOTE ---
Subjective - General Admit Date: 11/09/21 Procedure Date: 11/10/21 Post Op Days: 1 Procedure Performed: Reduction internal fixation basilar femoral neck fracture left hip with int - Review of Systems Wound/Incisions: positive: Healing well, Dressing dry and intact General: positive: No symptoms Pulmonary: positive: No symptoms Cardiovascular: positive: No symptoms Musculoskeletal: negative: Other (Pain appears to be decreasing to left hip and thigh and pain. To be controlled with medication.) Objective - Patient Data Vital Signs: Vital Signs x48h Temp Pulse Pulse Pulse Pulse Resp BP 11/11/21 11:40 36.6 C 65 16 11/11/21 10:55 64 84 73 141/82 H BP BP BP Pulse Ox 11/11/21 11:40 141/67 H 97 11/11/21 10:55 127/91 H 161/82 H Weight: Weight 11/09/21 11/10/21 11/11/21 23:59 23:59 23:59 Weight (kg) 60 kg 60 kg Intake & Output: Intake and Output Totals x24h 11/09/21 11/10/21 11/11/21 23:59 23:59 23:59 Intake Total 3838.333 2601.667 3775 Output Total 1250 3150 800 Balance 2588.333 -749.509 6961 - Lab Results Lab Results: 11/11/21 07:59 11/11/21 07:59 Other Lab Results: Lab Results x24hrs 11/11/21 11/11/21 11/11/21 Range/Units 07:59 07:59 07:59 WBC 12.6 H (4.8-10.8) x10^3/uL RBC 3.24 L (4.20-5.40) 10^6/uL Hgb 10.3 L (12.0-16.0) g/dL Hct 30.6 L (37.0-47.0) % MCV 94.4 (81.0-99.0) fL MCH 31.8 H (27.0-31.0) pg MCHC 33.7 (32.0-36.0) g/dL RDW 12.9 (12.0-15.0) % Plt Count 140 (130-450) 10^3/uL MPV 10.7 (7.9-10.8) fL Neut # (Auto) 10.6 H (1.5-6.6) 10^3/uL Lymph # (Auto) 0.7 L (1.5-3.5) 10^3/uL [place] # (Auto) 1.2 H (0.0-1.0) 10^3/uL Eos # (Auto) 0.0 (0.0-0.7) 10^3/uL Baso # (Auto) 0.0 (0.0-0.1) 10^3/uL Absolute Nucleated RBC 0.00 x10^3/uL Nucleated RBC % 0.0 /100WBC Sodium 128 L (135-145) mmol/L Potassium 3.6 (3.5-5.0) mmol/L Chloride 95 L (101-111) mmol/L Carbon Dioxide 27 (21-32) mmol/L Anion Gap 6.0 (6-13) BUN 12 (6-20) mg/dL Creatinine 0.6 (0.4-1.0) mg/dL Estimated GFR (MDRD) 96 (>89) Glucose 116 H (70-100) mg/dL Calcium 8.1 L (8.5-10.3) mg/dL Total Creatine Kinase 440 H (22-269) IU/L - Current Medications Current Medications: Current Medications Generic Name Dose Route Start Last Admin Trade Name Jean PRN Reason Stop Dose Admin Acetaminophen 650 mg 11/09/21 08:02 11/10/21 17:28 Acetaminophen 325 Mg Tablet PO 650 mg Q4HR PRN Administration Pain 1 to 4 Acetaminophen 1,000 mg 11/10/21 18:00 11/11/21 13:05 Acetaminophen 500 Mg Tablet PO 1,000 mg Q6HR ARELI Administration Alcohol 1 amp 11/10/21 21:00 11/11/21 08:56 Ethyl Alcohol 62% Swab Ampule RAMONA 1 amp BID ARELI Administration Calcium Carbonate/Glycine 500 mg 11/09/21 14:00 11/11/21 13:06 Calcium Carbonate Chew 500 Mg Tablet PO 500 mg TID ARELI Administration Cholecalciferol 800 unit 11/09/21 09:00 11/11/21 08:56 Cholecalciferol 400 Unit Tablet PO 800 unit DAILY ARE[facility] Administration Enoxaparin Sodium 40 mg 11/11/21 09:00 11/11/21 08:56 Enoxaparin 40 Mg/0.4 Ml Syringe SUBQ 40 mg DAILY ARE[facility] Administration Hydromorphone HCl 1 mg 11/09/21 21:20 11/11/21 14:09 Hydromorphone 1 Mg/Ml Carpuject IVP 1 mg Q2HR PRN Administration PAIN Sodium Chloride 1,000 mls @ 83.3 mls/hr 11/11/21 12:00 11/11/21 13:06 Normal Saline 0.9% IV 11/12/21 00:00 83.3 mls/hr .Q12H1M ARELI Administration Oxycodone HCl 5 mg 11/09/21 08:02 11/10/21 20:43 Oxycodone 5 Mg Tablet PO 5 mg Q4HR PRN Administration Pain 5 to 7 Polyethylene Glycol 17 gm 11/11/21 09:00 11/11/21 08:56 Polyethylene Glycol 3350 17 Gm Packet PO Not Given DAILY [facility] Sodium Chloride 10 ml 11/09/21 09:00 11/11/21 08:56 Sodium Chloride Flush 0.9% 10 Ml Syringe IVP 10 ml 0100,0900,1700 [facility] Administration - Physical Exam Wound/Incisions: positive: Dressing dry and intact General Appearance: positive: No acute distress Neurologic/Psychiatric: positive: Oriented x3 Comments/Other: This dressing is dry and intact left hip and thigh.There is no clinical deformity left leg. There is no sign of hematoma left hip. Her neurovascular status intact left leg Impression/Plan - Problem List Problem List: Status post open reduction internal fixation left hip fracture She is receiving physical and occupational therapy and seems to be progressing well. She is being comanaged with her hospitalist. Discharge planning is being done as well.
[2021-11-12] MEDS: ACETAMINOPHEN 500 MG TABLET PO SCH ×4 (00:07→19:22)
[2021-11-12] MEDS: SODIUM CHLORIDE FLUSH 0.9% 10 ML SYRINGE IVP SCH ×3 (00:08→19:23)
[2021-11-12] MEDS: HYDROmorphone 1 MG/ML CARPUJECT IVP PRN ×5 (00:15→19:22)
[2021-11-12] MEDS: CALCIUM CARBONATE CHEW 500 MG TABLET PO SCH ×3 (06:08→21:15)
[2021-11-12 06:32] LABS: BASOPHILS # (AUTO) 0.1 10^3/uL (0.0-0.1); BASOPHILS % (AUTO) 0.5 %; EOSINOPHILS # (AUTO) 0.1 10^3/uL (0.0-0.7); EOSINOPHILS % (AUTO) 1.2 %; HCT - HEMATOCRIT 29.8 % (37.0-47.0); HGB - HEMOGLOBIN 9.9 g/dL (12.0-16.0); LYMPHOCYTES # (AUTO) 0.5 10^3/uL (1.5-3.5); LYMPHOCYTES % (AUTO) 5.1 %; MEAN CORPUSCULAR HEMOGLOBIN 31.3 pg (27.0-31.0); MEAN CORPUSCULAR HGB CONC 33.2 g/dL (32.0-36.0); MEAN CORPUSCULAR VOLUME 94.3 fL (81.0-99.0); MONOCYTES # (AUTO) 0.9 10^3/uL (0.0-1.0); MONOCYTES % (AUTO) 8.4 %; NEUTROPHILS # (AUTO) 8.8 10^3/uL (1.5-6.6); NEUTROPHILS % (AUTO) 84.1 %; PLT - PLATELET COUNT 149 10^3/uL (130-450); RED BLOOD COUNT 3.16 10^6/uL (4.20-5.40); RED CELL DISTRIBUTION WIDTH 12.8 % (12.0-15.0); WHITE BLOOD COUNT 10.4 x10^3/uL (4.8-10.8)
[2021-11-12 06:39] LABS: CALCIUM 8.5 mg/dL (8.5-10.3); CREATININE 0.5 mg/dL (0.4-1.0); POTASSIUM 3.7 mmol/L (3.5-5.0)
[2021-11-12] MEDS: polyethylene glycoL 3350 17 GM PACKET PO SCH (07:49)
[2021-11-12] MEDS: ENOXAPARIN 40 MG/0.4 ML SYRINGE SUBQ SCH (07:50)
[2021-11-12] MEDS: ethyl alcohoL 62% SWAB AMPULE NAS SCH ×2 (07:50→21:15)
[2021-11-12] MEDS: CHOLECALCIFEROL 400 UNIT TABLET PO SCH (07:50)
[2021-11-12 08:18] LABS: ABSOLUTE RETICS # AUTO 0.074 10^6/uL (0.020-0.110); RED BLOOD COUNT 3.2 10^6/uL (4.20-5.40); RETICULOCYTE COUNT % (AUTO) 2.32 % (0.5-2.3)
[2021-11-12 08:33] LABS: % IRON SATURATION 8 % (20-50); IRON 15 ug/dL (28-170); TOTAL IRON BINDING CAPACITY 185 ug/dL (250-450); TRANSFERRIN 132 mg/dL (192-382)
[2021-11-12 08:47] LABS: FERRITIN 146.9 ng/mL (11.0-306.8)
--- NOTE | 2021-11-12 10:52 | PROVIDER PROGRESS NOTE ---
Assessment/Plan - Problem List (1) Intertrochanteric fracture of left hip Assessment/Plan: 11/12 Patient clearly reports she does not want to go to SNF, hope to have home health PT/OT/Aide, also hope equipment to help her. I explained to pt we hope pt d/c to SNF and continue training at SNF, and prevention of fall, special after left hip fracture repair. But we will honor her decision as well. Order home health PT/OT/Aide, consulted with social science research assistant for possible equipments for pt, order frontier wheel walker for pt. continue PT/OT, pain control, Lovenox for DVT prophylaxis, nurse educate pt how to SUBQ lovenox for her DVT prophylaxis at home. 11/11 Day 1 s/p of left hip repair. pt did have some special requirement, she decline to have Wise off, she decline to have Toradol PRN, she decline to have CXR. because she need oxygen s/p of surgery and continue elevated WBC, CXR was ordered. continue Pain control, continue PT and OT, continue Lovenox for DVT prophylaxis (2) Hyponatremia Conclusion/Plan: 11/12 Na 134, nearly resolved, keep oral hydration 11/ Na is 128, likely hypovolemia with hyponatremia, start with gentle IVF with NS, continue lab monitor. (3) Elevated CK Conclusion/Plan: 11/12, CK close to normal arrange, slight elevate, new CK test is pending, continue gentle IVF and lab monitor (4)anemia her HGB is 9.9, she is iron Deficiency anemia, also likely from acute blood loss from surgery, order ferrous pill and lab monitor - Current Meds Current Meds: Current Medications Generic Name Dose Route Start Last Admin Trade Name Freq PRN Reason Stop Dose Admin Acetaminophen 650 mg 11/09/21 08:02 11/10/21 17:28 Acetaminophen 325 Mg Tablet PO 650 mg Q4HR PRN Administration Pain 1 to 4 Acetaminophen 1,000 mg 11/10/21 18:00 11/12/21 06:08 Acetaminophen 500 Mg Tablet PO 1,000 mg Q6HR ARELI Administration Alcohol 1 amp 11/10/21 21:00 11/12/21 07:50 Ethyl Alcohol 62% Swab Ampule RAMONA 1 amp BID ARELI Administration Calcium Carbonate/Glycine 500 mg 11/09/21 14:00 11/12/21 06:08 Calcium Carbonate Chew 500 Mg Tablet PO 500 mg TID ARELI Administration Cholecalciferol 800 unit 11/09/21 09:00 11/12/21 07:50 Cholecalciferol 400 Unit Tablet PO 800 unit DAILY ARELI Administration Enoxaparin Sodium 40 mg 11/11/21 09:00 11/12/21 07:50 Enoxaparin 40 Mg/0.4 Ml Syringe SUBQ 40 mg DAILY ARELI Administration Hydromorphone HCl 1 mg 11/09/21 21:20 11/12/21 09:10 Hydromorphone 1 Mg/Ml Carpuject IVP 1 mg Q2HR PRN Administration PAIN Polyethylene Glycol 17 gm 11/11/21 09:00 11/12/21 07:49 Polyethylene Glycol 3350 17 Gm Packet PO 17 gm DAILY ARELI Administration Sodium Chloride 10 ml 11/09/21 09:00 11/12/21 07:51 Sodium Chloride Flush 0.9% 10 Ml Syringe IVP 10 ml 0100,0900,1700 ARELI Administration - Lab Result Fish Bone Diagrams: 11/12/21 05:54 11/12/21 05:54 - Additional Planning My Orders: My Active Orders 11/12/21 08:02 Wise Discontinuation [RC] ONCE 11/12/21 09:09 oxyCODONE [Roxicodone] 10 mg PO Q6HR PRN 11/12/21 10:00 Ferrous Gluconate [Fergon] 324 mg PO DAILYWM 11/12/21 10:49 CK- CREATINE KINASE [CHEM] Urgent 11/13/21 05:00 BMP - BASIC METABOLIC PANEL [CHEM] DAILYLAB CBC - COMP BLD CT W/AUTO DIFF [HEME] DAILYLAB CK- CREATINE KINASE [CHEM] DAILYLAB 11/14/21 05:00 BMP - BASIC METABOLIC PANEL [CHEM] DAILYLAB CBC - COMP BLD CT W/AUTO DIFF [HEME] DAILYLAB 11/15/21 05:00 BMP - BASIC METABOLIC PANEL [CHEM] DAILYLAB CBC - COMP BLD CT W/AUTO DIFF [HEME] DAILYLAB 11/16/21 05:00 BMP - BASIC METABOLIC PANEL [CHEM] DAILYLAB CBC - COMP BLD CT W/AUTO DIFF [HEME] DAILYLAB 11/17/21 05:00 BMP - BASIC METABOLIC PANEL [CHEM] DAILYLAB CBC - COMP BLD CT W/AUTO DIFF [HEME] DAILYLAB Subjective - Subjective Patient Reports: Resting Comfortably Objective Vital Signs: Vital Signs - 24 hr 11/11/21 11/11/21 11/11/21 10:55 11:40 15:52 Temperature 36.6 C 36.9 C Heart Rate [ 64 Activity] Heart Rate [ 65 69 Brachial] Heart Rate [ 84 Sitting] Heart Rate [ 73 Supine] Respiratory 16 16 Rate Blood Pressure 141/82 H [Activity] Blood Pressure 141/67 H 128/50 L [Right Brachial artery] Blood Pressure 127/91 H [Sitting] Blood Pressure 161/82 H [Supine] O2 Saturation 97 99 11/11/21 11/11/21 11/12/21 18:09 23:56 07:38 Temperature 37.0 C 36.9 C Heart Rate [ Activity] Heart Rate [ 78 65 Brachial] Heart Rate [ Sitting] Heart Rate [ Supine] Respiratory 18 18 18 Rate Blood Pressure [Activity] Blood Pressure 155/62 H 118/54 L [Right Brachial artery] Blood Pressure [Sitting] Blood Pressure [Supine] O2 Saturation 97 93 95 Oxygen O2 Source Room air I&O (Last 24 Hrs): Intake and Output Totals x24h 11/10/21 11/11/21 11/12/21 23:59 23:59 23:59 Intake Total 2601.667 4575 2630 Output Total 3150 1700 700 Balance -458.189 9951 1930 General: Alert, Oriented x3, Cooperative, No acute distress HEENT: Atraumatic Neck: Supple Lymphatic: no adenopathy Neuro: Alert, Non Focal, Oriented Times 3 Cardiovascular: Regular rate, Normal S1, Normal S2 Respiratory: Chest non-tender, No respiratory distress Abdomen: Normal bowel sounds, Soft Extremities: Normal pulses - Results Results: Laboratory Results WBC 10.4 x10^3/uL (4.8-10.8) 11/12/21 05:54 RBC 3.16 10^6/uL (4.20-5.40) L 11/12/21 05:54 RBC 3.20 10^6/uL (4.20-5.40) L 11/12/21 05:54 Hgb 9.9 g/dL (12.0-16.0) L 11/12/21 05:54 Hct 29.8 % (37.0-47.0) L 11/12/21 05:54 MCV 94.3 fL (81.0-99.0) 11/12/21 05:54 MCH 31.3 pg (27.0-31.0) H 11/12/21 05:54 MCHC 33.2 g/dL (32.0-36.0) 11/12/21 05:54 RDW 12.8 % (12.0-15.0) 11/12/21 05:54 Plt Count 149 10^3/uL (130-450) 11/12/21 05:54 MPV 11.0 fL (7.9-10.8) H 11/12/21 05:54 Reticulocyte % (Auto) 2.32 % (0.5-2.3) H 11/12/21 05:54 Neut # (Auto) 8.8 10^3/uL (1.5-6.6) H 11/12/21 05:54 Lymph # (Auto) 0.5 10^3/uL (1.5-3.5) L 11/12/21 05:54 [place] # (Auto) 0.9 10^3/uL (0.0-1.0) 11/12/21 05:54 Eos # (Auto) 0.1 10^3/uL (0.0-0.7) 11/12/21 05:54 Baso # (Auto) 0.1 10^3/uL (0.0-0.1) 11/12/21 05:54 Absolute Nucleated RBC 0.00 x10^3/uL 11/12/21 05:54 Nucleated RBC % 0.0 /100WBC 11/12/21 05:54 Absolute Retic 0.074 10^6/uL (0.020-0.110) 11/12/21 05:54 APTT 27.9 secs (24.9-33.3) 11/09/21 02:40 Sodium 134 mmol/L (135-145) L 11/12/21 05:54 Potassium 3.7 mmol/L (3.5-5.0) 11/12/21 05:54 Chloride 97 mmol/L (101-111) L 11/12/21 05:54 Carbon Dioxide 29 mmol/L (21-32) 11/12/21 05:54 Anion Gap 8.0 (6-13) 11/12/21 05:54 BUN 11 mg/dL (6-20) 11/12/21 05:54 Creatinine 0.5 mg/dL (0.4-1.0) 11/12/21 05:54 Estimated GFR (MDRD) 118 (>89) 11/12/21 05:54 Glucose 122 mg/dL (70-100) H 11/12/21 05:54 Lactic Acid 1.0 mmol/L (0.5-2.2) 11/09/21 02:40 Calcium 8.5 mg/dL (8.5-10.3) 11/12/21 05:54 Iron 15 ug/dL (28-170) L 11/12/21 05:54 TIBC 185 ug/dL (250-450) L 11/12/21 05:54 % Saturation 8 % (20-50) L 11/12/21 05:54 Transferrin 132 mg/dL (192-382) L 11/12/21 05:54 Ferritin 146.9 ng/mL (11.0-306.8) 11/12/21 05:54 Total Bilirubin 0.9 mg/dL (0.2-1.0) 11/09/21 15:45 AST 41 IU/L (10-42) 11/09/21 15:45 ALT 39 IU/L (10-60) 11/09/21 15:45 Alkaline Phosphatase 60 IU/L (42-121) 11/09/21 15:45 Lactate Dehydrogenase 186 IU/L (91-225) 11/12/21 05:54 Total Creatine Kinase 440 IU/L (22-269) H 11/11/21 07:59 Total Protein 5.6 g/dL (6.7-8.2) L 11/09/21 15:45 Albumin 3.4 g/dL (3.2-5.5) 11/09/21 15:45 Globulin 2.2 g/dL (2.1-4.2) 11/09/21 15:45 Albumin/Globulin Ratio 1.5 (1.0-2.2) 11/09/21 15:45 Lipase 20 U/L (22-51) L 11/09/21 02:40 Vitamin B12 514 pg/mL (180-914) 11/12/21 05:54 Urine Color YELLOW 11/09/21 06:35 Urine Clarity CLEAR (CLEAR) 11/09/21 06:35 Urine pH 6.0 PH (5.0-7.5) 11/09/21 06:35 Ur Specific [place] 1.015 (1.002-1.030) 11/09/21 06:35 Urine Protein NEGATIVE mg/dL (NEGATIVE) 11/09/21 06:35 Urine Glucose (UA) NEGATIVE mg/dL (NEGATIVE) 11/09/21 06:35 Urine Ketones 15 mg/dL (NEGATIVE) H 11/09/21 06:35 Urine Occult Blood NEGATIVE (NEGATIVE) 11/09/21 06:35 Urine Nitrite NEGATIVE (NEGATIVE) 11/09/21 06:35 Urine Bilirubin NEGATIVE (NEGATIVE) 11/09/21 06:35 Urine Urobilinogen 0.2 (NORMAL) E.U./dL (NORMAL) 11/09/21 06:35 Ur Leukocyte Esterase NEGATIVE (NEGATIVE) 11/09/21 06:35 Ur Microscopic Review NOT INDICATED 11/09/21 06:35 Urine Culture Comments NOT INDICATED 11/09/21 06:35 Nasal Adenovirus (PCR) NOT DETECTED 11/09/21 02:48 Nasal B. parapertussis DNA (PCR) NOT DETECTED 11/09/21 02:48 Nasal Coronavir 229E PCR NOT DETECTED 11/09/21 02:48 Nasal Coronavir HKU1 PCR NOT DETECTED 11/09/21 02:48 Nasal Coronavir NL63 PCR NOT DETECTED 11/09/21 02:48 Nasal Coronavir OC43 PCR NOT DETECTED 11/09/21 02:48 Nasal Enterovir/Rhinovir PCR NOT DETECTED 11/09/21 02:48 Nasal Influenza B PCR NOT DETECTED 11/09/21 02:48 Nasal Influenza A PCR NOT DETECTED 11/09/21 02:48 Nasal Parainfluen 1 PCR NOT DETECTED 11/09/21 02:48 Nasal Parainfluen 2 PCR NOT DETECTED 11/09/21 02:48 Nasal Parainfluen 3 PCR NOT DETECTED 11/09/21 02:48 Nasal Parainfluen 4 PCR NOT DETECTED 11/09/21 02:48 Nasal RSV (PCR) NOT DETECTED 11/09/21 02:48 Nasal B.pertussis DNA PCR NOT DETECTED 11/09/21 02:48 Nasal C.pneumoniae (PCR) NOT DETECTED 11/09/21 02:48 Ramona Human Metapneumo PCR NOT DETECTED 11/09/21 02:48 Nasal M.pneumoniae (PCR) NOT DETECTED 11/09/21 02:48 Nasal SARS-CoV-2 (PCR) NOT DETECTED 11/09/21 02:48 ABX Reporting Has patient been on IV antibiotics over the past 48 hours?: No Current Medications - Current Medications Current Medications: Active Medications Acetaminophen (Acetaminophen 325 Mg Tablet) 650 mg PO Q4HR PRN PRN Reason: Pain 1 to 4 Last Admin: 11/10/21 17:28 Dose: 650 mg Acetaminophen (Acetaminophen 500 Mg Tablet) 1,000 mg PO Q6HR [facility] Last Admin: 11/12/21 06:08 Dose: 1,000 mg Alcohol (Ethyl Alcohol 62% Swab Ampule) 1 amp RAMONA BID [facility] Last Admin: 11/12/21 07:50 Dose: 1 amp Calcium Carbonate/Glycine (Calcium Carbonate Chew 500 Mg Tablet) 500 mg PO TID [facility] Last Admin: 11/12/21 06:08 Dose: 500 mg Cholecalciferol (Cholecalciferol 400 Unit Tablet) 800 unit PO DAILY [facility] Last Admin: 11/12/21 07:50 Dose: 800 unit Enoxaparin Sodium (Enoxaparin 40 Mg/0.4 Ml Syringe) 40 mg SUBQ DAILY [facility] Last Admin: 11/12/21 07:50 Dose: 40 mg Ferrous Gluconate (Ferrous Gluconate 324 Mg Tablet) 324 mg PO DAILYWM [facility] Hydromorphone HCl (Hydromorphone 1 Mg/Ml Carpuject) 1 mg IVP Q2HR PRN PRN Reason: PAIN Last Admin: 11/12/21 09:10 Dose: 1 mg Ketorolac Tromethamine (Ketorolac 15 Mg/Ml Vial) 15 mg IVP Q6HR PRN PRN Reason: PAIN Stop: 11/14/21 21:19 Ondansetron HCl (Ondansetron Odt 4 Mg Tablet) 4 mg TL Q6HR PRN PRN Reason: Nausea / Vomiting Ondansetron HCl (Ondansetron 4 Mg/2 Ml Vial) 4 mg IVP Q6HR PRN PRN Reason: Nausea / Vomiting Oxycodone HCl (Oxycodone 5 Mg Tablet) 10 mg PO Q6HR PRN PRN Reason: Pain 5 to 7 Polyethylene Glycol (Polyethylene Glycol 3350 17 Gm Packet) 17 gm PO DAILY [facility] Last Admin: 11/12/21 07:49 Dose: 17 gm Sodium Chloride (Sodium Chloride Flush 0.9% 10 Ml Syringe) 10 ml IVP PRN PRN PRN Reason: NEEDED PER PROVIDER ORDERS Sodium Chloride (Sodium Chloride Flush 0.9% 10 Ml Syringe) 10 ml IVP 0100,0900,1700 ARELI Last Admin: 11/12/21 07:51 Dose: 10 ml No Known Home Medications 11/09/21
[2021-11-12] MEDS: FERROUS GLUCONATE 324 MG TABLET PO SCH (12:13)
[2021-11-12] MEDS: SODIUM CHLORIDE 0.9% 1,000 ML IV SCH (15:11)
[2021-11-12] MEDS: oxyCODONE 5 MG TABLET PO PRN (17:31)
[2021-11-13] MEDS: oxyCODONE 5 MG TABLET PO PRN ×4 (00:46→18:23)
[2021-11-13] MEDS: SODIUM CHLORIDE FLUSH 0.9% 10 ML SYRINGE IVP SCH ×3 (01:33→16:37)
[2021-11-13] MEDS: ACETAMINOPHEN 500 MG TABLET PO SCH ×4 (01:58→21:12)
[2021-11-13] MEDS: SODIUM CHLORIDE 0.9% 1,000 ML IV SCH (02:00)
[2021-11-13] MEDS: CALCIUM CARBONATE CHEW 500 MG TABLET PO SCH ×3 (06:43→21:12)
[2021-11-13 07:16] LABS: BASOPHILS # (AUTO) 0.1 10^3/uL (0.0-0.1); BASOPHILS % (AUTO) 0.6 %; EOSINOPHILS # (AUTO) 0.3 10^3/uL (0.0-0.7); EOSINOPHILS % (AUTO) 3.7 %; HCT - HEMATOCRIT 31.8 % (37.0-47.0); HGB - HEMOGLOBIN 10.5 g/dL (12.0-16.0); LYMPHOCYTES # (AUTO) 0.9 10^3/uL (1.5-3.5); LYMPHOCYTES % (AUTO) 11.1 %; MEAN CORPUSCULAR HEMOGLOBIN 31.3 pg (27.0-31.0); MEAN CORPUSCULAR VOLUME 94.9 fL (81.0-99.0); MEAN PLATELET VOLUME 10.5 fL (7.9-10.8); MONOCYTES # (AUTO) 0.8 10^3/uL (0.0-1.0); MONOCYTES % (AUTO) 9.4 %; NEUTROPHILS # (AUTO) 6.1 10^3/uL (1.5-6.6); NEUTROPHILS % (AUTO) 74.7 %; PLT - PLATELET COUNT 178 10^3/uL (130-450); RED BLOOD COUNT 3.35 10^6/uL (4.20-5.40); RED CELL DISTRIBUTION WIDTH 13.2 % (12.0-15.0); WHITE BLOOD COUNT 8.1 x10^3/uL (4.8-10.8)
[2021-11-13 07:27] LABS: CALCIUM 8.6 mg/dL (8.5-10.3); CREATININE 0.5 mg/dL (0.4-1.0); POTASSIUM 3.9 mmol/L (3.5-5.0)
[2021-11-13] MEDS: FERROUS GLUCONATE 324 MG TABLET PO SCH (07:48)
[2021-11-13] MEDS: polyethylene glycoL 3350 17 GM PACKET PO SCH (07:48)
[2021-11-13] MEDS: CHOLECALCIFEROL 400 UNIT TABLET PO SCH (07:48)
[2021-11-13] MEDS: ethyl alcohoL 62% SWAB AMPULE NAS SCH ×2 (07:48→21:12)
[2021-11-13] MEDS ORDERED: ASPIRIN CHEW 81 MG TABLET PO SCH (09:00)
--- NOTE | 2021-11-13 09:08 | Discharge Plan ---
Discharge Plan Problem Reviewed?: Yes Disposition: Home Health Service Condition: Stable Prescriptions: Acetaminophen [Tylenol] 650 mg PO Q4HR PRN #30 tablet PRN Reason: Pain 1 to 4 Apixaban [Eliquis] 5 mg PO BID #60 tablet Ferrous Gluconate [Fergon] 324 mg PO DAILYWM #30 tablet oxyCODONE [Roxicodone] 10 mg PO Q6H PRN #50 tablet PRN Reason: Pain Calcium Carbonate [Tums (Calcium Carbonate 500mg)] 500 mg PO BID #30 tablet Cholecalciferol [Vitamin D3] 800 unit PO DAILY #30 tablet Diet: Regular Activity Restrictions: Activity as Tolerated Shower Restrictions: No (fall precaution) Assistance Devices: Walker Weight Bearing: Other (weight bearing as tolerated) Instruction Topics: Apixaban oral tablets, Oxycodone tablets or capsules, Arthroscopy Hip Repair Labral Tear, DVT Prevent, Fx Hip Surg Hospital After, Fx Hip Surg Home Recovery Health Concerns: status post care of hip fracture repair Plan of Treatment: You were found to have left hip fracture. you had hip fracture repaired by orthopedics. You chose to be d/c to home instead of SNF. You are prescribed oxycodone PRN and Tylenol PRN for pain control. Eliquis bid is prescribed for your focal venous thrombosis and DVT Prophylaxis. You may followup with your PCP continue to monitor and manage of your venous thrombosis. Iron pill is prescribed for your iron Deficiency anemia. Home health Physical therapist, occupational therapist, home health RN and aide are arranged for you. You may followup with orthopedics surgeon in one week or early as needed. Care Goals: Stabilization and healing of your left hip fracture. Assessment: Discussed the care plan in detail with the you, answered your questions, he understood Additional Instructions or Follow Up instructions: You may follow-up with your PCP in one to two weeks, follow-up with orthopedics Dr. Soni in one week or earlier as needed. should your symptoms return or worsen, you may present to the ER or call 911 for help Follow-Up Care: Home Health - RN, Home Health - PT, Home Health - OT No Smoking: If you smoke, Please STOP! Call for help.
[2021-11-13] MEDS ORDERED: HYDROmorphone 2 MG TABLET PO PRN (10:55)
[2021-11-13] MEDS ORDERED: HYDROmorphone 1 MG/ML CARPUJECT IVP SCH (11:00)
--- NOTE | 2021-11-13 15:34 | Ultrasound Report ---
PROCEDURE: Duplex Ext Veins Left INDICATIONS: left lower extremity swelling and warm if DVT/toan TECHNIQUE: Real-time imaging, as well as color and pulse Doppler interrogation, were performed of the lower extr emity deep veins from the inguinal ligament to the popliteal fossa. COMPARISON: None. FINDINGS: Focal intraluminal filling defect involving left gastrocnemius vein at the level of mid calf region i s seen with poor compressibility. Rest of the deep veins are normally compressible, and free of intraluminal thrombus. Color and pulse Doppler demonstrate normal phasic intraluminal flow. There is normal augmentation response to dista l compression maneuver. IMPRESSION: 1. Focal venous thrombosis involving left gastrocnemius vein at left mid calf level. 2. No evidence of deep venous thrombosis in rest of the visualized left lower extremity veins. Reviewed by: Ethan Kelsey MD on 11/13/2021 3:26 PM PST Approved by: Ethan Kelsey MD on 11/13/2021 3:26 PM PST Station ID: [id number]
--- NOTE | 2021-11-13 15:57 | PROVIDER PROGRESS NOTE ---
Assessment/Plan - Problem List (1) Intertrochanteric fracture of left hip Assessment/Plan: 11/13 pt report she still has significant pain when she move. continue PT/OT, continue pain control. group social worker set up home health PT/OT/skill RN/Aide, and PCP for pt. pt has no PCP and she had natural path provider. 11/12 Patient clearly reports she does not want to go to SNF, hope to have home health PT/OT/Aide, also hope equipment to help her. I explained to pt we hope pt d/c to SNF and continue training at SNF, and prevention of fall, special after left hip fracture repair. But we will honor her decision as well. Order home health PT/OT/Aide, consulted with group social worker for possible equipments for pt, order frontier wheel walker for pt. continue PT/OT, pain control, Lovenox for DVT prophylaxis, nurse educate pt how to SUBQ lovenox for her DVT prophylaxis at home. 11/11 Day 1 s/p of left hip repair. pt did have some special requirement, she decline to have Wise off, she decline to have Toradol PRN, she decline to have CXR. because she need oxygen s/p of surgery and continue elevated WBC, CXR was ordered. continue Pain control, continue PT and OT, continue Lovenox for DVT prophylaxis (2)left lower extremity venous thrombosis pt complain of swelling and mild warm at left lower extremity. US reveals focal venous thrombosis involving let gastrocnemium vein of left mid calf level, but no evidence of DVT at rest of visualized left lower extremity veins. Discussed the situation with the pharmacy, consideration patient's age, and blood clots location. We started with Eliquis 5 mg twice daily. (3) Hyponatremia Conclusion/Plan: 11/12 Na 134, nearly resolved, keep oral hydration Na is 128, likely hypovolemia with hyponatremia, start with gentle IVF with NS, continue lab monitor. (4)anemia 11/13 HGB is 10.5, improved. Continue iron pill and lab monitor her HGB is 9.9, she is iron Deficiency anemia, also likely from acute blood loss from surgery, order ferrous pill and lab monitor - Current Meds Current Meds: Current Medications Generic Name Dose Route Start Last Admin Trade Name Freq PRN Reason Stop Dose Admin Acetaminophen 1,000 mg 11/13/21 08:00 11/13/21 14:00 Acetaminophen 500 Mg Tablet PO 1,000 mg Q6H ARELI Administration Alcohol 1 amp 11/10/21 21:00 11/13/21 07:48 Ethyl Alcohol 62% Swab Ampule RAMONA 1 amp BID ARELI Administration Calcium Carbonate/Glycine 500 mg 11/09/21 14:00 11/13/21 14:00 Calcium Carbonate Chew 500 Mg Tablet PO 500 mg TID ARELI Administration Cholecalciferol 800 unit 11/09/21 09:00 11/13/21 07:48 Cholecalciferol 400 Unit Tablet PO 800 unit DAILY ARELI Administration Ferrous Gluconate 324 mg 11/12/21 10:00 11/13/21 07:48 Ferrous Gluconate 324 Mg Tablet PO 324 mg DAILYWM ARELI Administration Oxycodone HCl 10 mg 11/12/21 09:09 11/13/21 06:43 Oxycodone 5 Mg Tablet PO 10 mg Q6HR PRN Administration Pain 5 to 7 Polyethylene Glycol 17 gm 11/11/21 09:00 11/13/21 07:48 Polyethylene Glycol 3350 17 Gm Packet PO Not Given DAILY [facility] Sodium Chloride 10 ml 11/09/21 09:00 11/13/21 07:54 Sodium Chloride Flush 0.9% 10 Ml Syringe IVP 10 ml 0100,0900,1700 [facility] Administration - Lab Result Fish Bone Diagrams: 11/13/21 06:46 11/13/21 06:46 - Additional Planning My Orders: My Active Orders 11/13/21 10:55 HYDROmorphone [Dilaudid] 2 mg PO Q6HR PRN 11/13/21 15:48 Apixaban [Eliquis] 10 mg PO BID 11/14/21 05:00 BMP - BASIC METABOLIC PANEL [CHEM] DAILYLAB CBC - COMP BLD CT W/AUTO DIFF [HEME] DAILYLAB 11/15/21 05:00 BMP - BASIC METABOLIC PANEL [CHEM] DAILYLAB CBC - COMP BLD CT W/AUTO DIFF [HEME] DAILYLAB 11/16/21 05:00 BMP - BASIC METABOLIC PANEL [CHEM] DAILYLAB CBC - COMP BLD CT W/AUTO DIFF [HEME] DAILYLAB 11/17/21 05:00 BMP - BASIC METABOLIC PANEL [CHEM] DAILYLAB CBC - COMP BLD CT W/AUTO DIFF [HEME] DAILYLAB Subjective - Subjective Patient Reports: Resting Comfortably Objective Vital Signs: Vital Signs - 24 hr 11/12/21 11/13/21 11/13/21 15:53 00:16 07:33 Temperature 37.6 C 36.9 C 36.9 C Heart Rate [ 84 77 79 Brachial] Respiratory 16 18 16 Rate Blood Pressure 151/72 H 142/69 H 139/63 H [Right Brachial artery] O2 Saturation 95 96 92 11/13/21 15:45 Temperature 36.9 C Heart Rate [ 76 Brachial] Respiratory 20 Rate Blood Pressure 155/66 H [Right Brachial artery] O2 Saturation 95 Oxygen O2 Source Room air I&O (Last 24 Hrs): Intake and Output Totals x24h 11/11/21 11/12/21 11/13/21 23:59 23:59 23:59 Intake Total 4575 4301.942 2731.107 Output Total 1700 1900 2750 Balance 2875 2401.942 -18.893 General: Alert, Oriented x3, No acute distress HEENT: Atraumatic Neck: Supple Lymphatic: no adenopathy Neuro: Alert, Non Focal, Oriented Times 3 Cardiovascular: Regular rate, Normal S1, Normal S2 Respiratory: Chest non-tender, No respiratory distress Abdomen: Normal bowel sounds, Soft Extremities: Normal pulses - Results Results: Laboratory Results WBC 8.1 x10^3/uL (4.8-10.8) 11/13/21 06:46 RBC 3.35 10^6/uL (4.20-5.40) L 11/13/21 06:46 Hgb 10.5 g/dL (12.0-16.0) L 11/13/21 06:46 Hct 31.8 % (37.0-47.0) L 11/13/21 06:46 MCV 94.9 fL (81.0-99.0) 11/13/21 06:46 MCH 31.3 pg (27.0-31.0) H 11/13/21 06:46 MCHC 33.0 g/dL (32.0-36.0) 11/13/21 06:46 RDW 13.2 % (12.0-15.0) 11/13/21 06:46 Plt Count 178 10^3/uL (130-450) 11/13/21 06:46 MPV 10.5 fL (7.9-10.8) 11/13/21 06:46 Reticulocyte % (Auto) 2.32 % (0.5-2.3) H 11/12/21 05:54 Neut # (Auto) 6.1 10^3/uL (1.5-6.6) 11/13/21 06:46 Lymph # (Auto) 0.9 10^3/uL (1.5-3.5) L 11/13/21 06:46 [place]aden # (Auto) 0.8 10^3/uL (0.0-1.0) 11/13/21 06:46 Eos # (Auto) 0.3 10^3/uL (0.0-0.7) 11/13/21 06:46 Baso # (Auto) 0.1 10^3/uL (0.0-0.1) 11/13/21 06:46 Absolute Nucleated RBC 0.00 x10^3/uL 11/13/21 06:46 Nucleated RBC % 0.0 /100WBC 11/13/21 06:46 Absolute Retic 0.074 10^6/uL (0.020-0.110) 11/12/21 05:54 APTT 27.9 secs (24.9-33.3) 11/09/21 02:40 Sodium 134 mmol/L (135-145) L 11/13/21 06:46 Potassium 3.9 mmol/L (3.5-5.0) 11/13/21 06:46 Chloride 96 mmol/L (101-111) L 11/13/21 06:46 Carbon Dioxide 30 mmol/L (21-32) 11/13/21 06:46 Anion Gap 8.0 (6-13) 11/13/21 06:46 BUN 9 mg/dL (6-20) 11/13/21 06:46 Creatinine 0.5 mg/dL (0.4-1.0) 11/13/21 06:46 Estimated GFR (MDRD) 118 (>89) 11/13/21 06:46 Glucose 103 mg/dL (70-100) H 11/13/21 06:46 Lactic Acid 1.0 mmol/L (0.5-2.2) 11/09/21 02:40 Calcium 8.6 mg/dL (8.5-10.3) 11/13/21 06:46 Iron 15 ug/dL (28-170) L 11/12/21 05:54 TIBC 185 ug/dL (250-450) L 11/12/21 05:54 % Saturation 8 % (20-50) L 11/12/21 05:54 Transferrin 132 mg/dL (192-382) L 11/12/21 05:54 Ferritin 146.9 ng/mL (11.0-306.8) 11/12/21 05:54 Total Bilirubin 0.9 mg/dL (0.2-1.0) 11/09/21 15:45 AST 41 IU/L (10-42) 11/09/21 15:45 ALT 39 IU/L (10-60) 11/09/21 15:45 Alkaline Phosphatase 60 IU/L (42-121) 11/09/21 15:45 Lactate Dehydrogenase 186 IU/L (91-225) 11/12/21 05:54 Total Creatine Kinase 327 IU/L (22-269) H 11/13/21 06:46 Total Protein 5.6 g/dL (6.7-8.2) L 11/09/21 15:45 Albumin 3.4 g/dL (3.2-5.5) 11/09/21 15:45 Globulin 2.2 g/dL (2.1-4.2) 11/09/21 15:45 Albumin/Globulin Ratio 1.5 (1.0-2.2) 11/09/21 15:45 Lipase 20 U/L (22-51) L 11/09/21 02:40 Vitamin B12 514 pg/mL (180-914) 11/12/21 05:54 Urine Color YELLOW 11/09/21 06:35 Urine Clarity CLEAR (CLEAR) 11/09/21 06:35 Urine pH 6.0 PH (5.0-7.5) 11/09/21 06:35 Ur Specific [place] 1.015 (1.002-1.030) 11/09/21 06:35 Urine Protein NEGATIVE mg/dL (NEGATIVE) 11/09/21 06:35 Urine Glucose (UA) NEGATIVE mg/dL (NEGATIVE) 11/09/21 06:35 Urine Ketones 15 mg/dL (NEGATIVE) H 11/09/21 06:35 Urine Occult Blood NEGATIVE (NEGATIVE) 11/09/21 06:35 Urine Nitrite NEGATIVE (NEGATIVE) 11/09/21 06:35 Urine Bilirubin NEGATIVE (NEGATIVE) 11/09/21 06:35 Urine Urobilinogen 0.2 (NORMAL) E.U./dL (NORMAL) 11/09/21 06:35 Ur Leukocyte Esterase NEGATIVE (NEGATIVE) 11/09/21 06:35 Ur Microscopic Review NOT INDICATED 11/09/21 06:35 Urine Culture Comments NOT INDICATED 11/09/21 06:35 Nasal Adenovirus (PCR) NOT DETECTED 11/09/21 02:48 Nasal B. parapertussis DNA (PCR) NOT DETECTED 11/09/21 02:48 Nasal Coronavir 229E PCR NOT DETECTED 11/09/21 02:48 Nasal Coronavir HKU1 PCR NOT DETECTED 11/09/21 02:48 Nasal Coronavir NL63 PCR NOT DETECTED 11/09/21 02:48 Nasal Coronavir OC43 PCR NOT DETECTED 11/09/21 02:48 Nasal Enterovir/Rhinovir PCR NOT DETECTED 11/09/21 02:48 Nasal Influenza B PCR NOT DETECTED 11/09/21 02:48 Nasal Influenza A PCR NOT DETECTED 11/09/21 02:48 Nasal Parainfluen 1 PCR NOT DETECTED 11/09/21 02:48 Nasal Parainfluen 2 PCR NOT DETECTED 11/09/21 02:48 Nasal Parainfluen 3 PCR NOT DETECTED 11/09/21 02:48 Nasal Parainfluen 4 PCR NOT DETECTED 11/09/21 02:48 Nasal RSV (PCR) NOT DETECTED 11/09/21 02:48 Nasal B.pertussis DNA PCR NOT DETECTED 11/09/21 02:48 Nasal C.pneumoniae (PCR) NOT DETECTED 11/09/21 02:48 Ramona Human Metapneumo PCR NOT DETECTED 11/09/21 02:48 Nasal M.pneumoniae (PCR) NOT DETECTED 11/09/21 02:48 Nasal SARS-CoV-2 (PCR) NOT DETECTED 11/09/21 02:48 ABX Reporting Has patient been on IV antibiotics over the past 48 hours?: No Current Medications - Current Medications Current Medications: Active Medications Acetaminophen (Acetaminophen 500 Mg Tablet) 1,000 mg PO Q6H [facility] Last Admin: 11/13/21 14:00 Dose: 1,000 mg Alcohol (Ethyl Alcohol 62% Swab Ampule) 1 amp RAMONA BID ARELI Last Admin: 11/13/21 07:48 Dose: 1 amp Apixaban (Apixaban 5 Mg Tablet) 5 mg PO BID [facility] Stop: 11/20/21 16:59 Calcium Carbonate/Glycine (Calcium Carbonate Chew 500 Mg Tablet) 500 mg PO TID [facility] Last Admin: 11/13/21 14:00 Dose: 500 mg Cholecalciferol (Cholecalciferol 400 Unit Tablet) 800 unit PO DAILY [facility] Last Admin: 11/13/21 07:48 Dose: 800 unit Ferrous Gluconate (Ferrous Gluconate 324 Mg Tablet) [facility] [place] Admin: 11/13/21 07:48 Dose: 324 mg Hydromorphone HCl (Hydromorphone 2 Mg Tablet) 2 mg PO Q6HR PRN PRN Reason: Severe Pain Ondansetron HCl (Ondansetron Odt 4 Mg Tablet) 4 mg TL Q6HR PRN PRN Reason: Nausea / Vomiting Ondansetron HCl (Ondansetron 4 Mg/2 Ml Vial) 4 mg IVP Q6HR PRN PRN Reason: Nausea / Vomiting Oxycodone HCl (Oxycodone 5 Mg Tablet) 10 mg PO Q6HR PRN PRN Reason: Pain 5 to 7 Last Admin: 11/13/21 06:43 Dose: 10 mg Polyethylene Glycol (Polyethylene Glycol 3350 17 Gm Packet) 17 gm PO DAILY [facility] Last Admin: 11/13/21 07:48 Dose: Not Given Sodium Chloride (Sodium Chloride Flush 0.9% 10 Ml Syringe) 10 ml IVP PRN PRN PRN Reason: NEEDED PER PROVIDER ORDERS Sodium Chloride (Sodium Chloride Flush 0.9% 10 Ml Syringe) 10 ml IVP 0100,0900,1700 [facility] Last Admin: 11/13/21 07:54 Dose: 10 ml
[2021-11-13] MEDS: APIXABAN 5 MG TABLET PO SCH (16:37)
[2021-11-14] MEDS: oxyCODONE 5 MG TABLET PO PRN ×3 (01:21→13:21)
[2021-11-14] MEDS: ACETAMINOPHEN 500 MG TABLET PO SCH ×3 (03:30→13:21)
[2021-11-14] MEDS: SODIUM CHLORIDE FLUSH 0.9% 10 ML SYRINGE IVP SCH ×2 (03:32→08:41)
[2021-11-14] MEDS: CALCIUM CARBONATE CHEW 500 MG TABLET PO SCH ×2 (05:17→13:21)
[2021-11-14 06:28] LABS: BASOPHILS % (AUTO) 0.5 %; EOSINOPHILS # (AUTO) 0.4 10^3/uL (0.0-0.7); EOSINOPHILS % (AUTO) 4.7 %; HCT - HEMATOCRIT 31.4 % (37.0-47.0); HGB - HEMOGLOBIN 10.6 g/dL (12.0-16.0); LYMPHOCYTES # (AUTO) 0.7 10^3/uL (1.5-3.5); LYMPHOCYTES % (AUTO) 8.9 %; MEAN CORPUSCULAR HEMOGLOBIN 31.8 pg (27.0-31.0); MEAN CORPUSCULAR HGB CONC 33.8 g/dL (32.0-36.0); MEAN CORPUSCULAR VOLUME 94.3 fL (81.0-99.0); MEAN PLATELET VOLUME 10.4 fL (7.9-10.8); MONOCYTES # (AUTO) 0.7 10^3/uL (0.0-1.0); MONOCYTES % (AUTO) 9.1 %; NEUTROPHILS # (AUTO) 6.2 10^3/uL (1.5-6.6); NEUTROPHILS % (AUTO) 76.4 %; PLT - PLATELET COUNT 199 10^3/uL (130-450); RED BLOOD COUNT 3.33 10^6/uL (4.20-5.40); RED CELL DISTRIBUTION WIDTH 13.2 % (12.0-15.0); WHITE BLOOD COUNT 8.1 x10^3/uL (4.8-10.8)
[2021-11-14 06:33] LABS: CALCIUM 8.8 mg/dL (8.5-10.3); CREATININE 0.5 mg/dL (0.4-1.0); POTASSIUM 4.2 mmol/L (3.5-5.0)
[2021-11-14 07:55] VITALS: BP 162/75
[2021-11-14] MEDS: CHOLECALCIFEROL 400 UNIT TABLET PO SCH (08:32)
[2021-11-14] MEDS: ethyl alcohoL 62% SWAB AMPULE NAS SCH (08:33)
[2021-11-14] MEDS: APIXABAN 5 MG TABLET PO SCH (08:34)
[2021-11-14] MEDS: FERROUS GLUCONATE 324 MG TABLET PO SCH (08:34)
[2021-11-14] MEDS: polyethylene glycoL 3350 17 GM PACKET PO SCH (08:34)
--- NOTE | 2021-11-14 11:12 | DISCHARGE SUMMARY ---
"Discharge Summary Admit Date: 11/09/21 Discharge Date: 11/14/21 Discharging Provider: Refugio Clarke Condition at Discharge: Stable Discharge Disposition: Home Health Service Discharge Facility Name: home - DIAGNOSES Discharge Diagnoses with Status of Each Condition: (1) Intertrochanteric fracture of left hip pt had left hip repaired by orthopedics surgeon. pt was recommended by PT/OT to be d/c to SNF but pt declined it and request to be d/c to home. I saw pt walked with walker at nurse Carter at the side. pt is arranged to have home health PT/OT/RN/Aide per PT/OT's recommendation. pt is prescribed pain medication and front wheel walker, Eliquis is prescribed for pt DVT Prophylaxis and focal venous thrombosis involving let gastrocnemium vein of left mid calf level. pt may followup with orthopedics surgeon in one week. (2)left lower extremity venous thrombosis US reveals focal venous thrombosis involving let gastrocnemium vein of left mid calf level, but no evidence of DVT at rest of visualized left lower extremity ve ins. Discussed the situation with the pharmacy, consideration patient's age, and blood clots location, also just s/p of hip fracture and repaired. We started with Eliquis 5 mg twice daily, followup with her PCP and orthopedics's management. (3) Hyponatremia resolved (4)anemia HGB is 10.6, iron deficiency anemia. pt is prescribed iron pill - [facility] History of Present Illness: Refer from 's HPI on 11/09/21 Patient presented to ED early this morning following a fall in her home yesterday afternoon. She was in her walk in closet at home and tripped on her slippers falling and landing on her left shoulder and hip. She felt immediate pain of the hip and was able to drag herself to the door to alert her adult son who lives in the home. They did not seek immediate help as she thought the pain would resolve. The son called her brother who asked if the leg was shortened which it did appear and he alerted EMS at that point. She does not have any history of frequent falls. She is very independent at home and able to take care of her daily needs. She sees a product support sales representative in the are and generally manages health concerns with teas and herbal remedies. She is hesitant to take too much pain medication and would like to avoid many medications. She has spoken with the orthopedic surgeon and is prepared for surgical repair tomorrow. She denies any sensory loss or numbness of the limb.She denies any chest pain, dizziness, shortness or breath or swelling. - CONSULTS | PROCEDURES Consultations: Dr. Soni Procedures: Open duction internal fixation intertrochanteric fracture left hip with [employer] locked long intramedullary nail with integrated hip screw; 95/90 leg and integrated screw, 40 cm intramedullary nail with 2 distal locking screws - ALLERGIES Allergies/Adverse Reactions: Allergies Allergy/AdvReac Type Severity Reaction Status Date / Time chlorpheniramine Allergy Unknown Verified 11/09/21 01:42 [From Ornade] haloperidol [From Haldol] Allergy Unknown Verified 11/09/21 01:42 ketamine Allergy Unknown Verified 11/09/21 01:41 phenylpropanolamine Allergy Unknown Verified 11/09/21 01:42 [From Ornade] propylene glycol Allergy Unknown Verified 11/09/21 01:43 acetone AdvReac Intermediate Respiratory Verified 11/12/21 13:45 - MEDICATIONS Home Medications: Ambulatory Orders Medication Instructions Recorded Confirmed Acetaminophen [Tylenol] 650 mg PO Q4HR PRN #30 tablet 11/13/21 Calcium Carbonate [Tums (Calcium 500 mg PO BID #30 tablet 11/13/21 Carbonate 500mg)] Cholecalciferol [Vitamin D3] 800 unit PO DAILY #30 tablet 11/13/21 Ferrous Gluconate [Fergon] 324 mg PO DAILYWM #30 tablet 11/13/21 oxyCODONE [Roxicodone] 10 mg PO Q6H PRN #50 tablet 11/13/21 Apixaban [Eliquis] 5 mg PO BID #60 tablet 11/14/21 - PHYSICAL EXAM AT DISCHARGE General Appearance: positive: No acute distress, Alert. negative: Lethargic Eyes Bilateral: positive: Normal inspection, No lid inflammation ENT: positive: ENT inspection nml, No signs of dehydration. negative: Purulent nasal drainage Neck: positive: Nml inspection, Trachea midline. negative: Tracheal deviation Respiratory: positive: Chest non-tender, No respiratory distress, Breath sounds nml. negative: Wheezes Cardiovascular: positive: Regular rate & rhythm, No murmur. negative: Tachycardia, Bradycardia, Systolic murmur Peripheral Pulses: positive: 2+ Abdomen: positive: Non-tender, Nml bowel sounds, No distention. negative: Tenderness Back: positive: Nml inspection Skin: positive: Color nml, Warm, Dry Extremities: positive: Non-tender, Full ROM, Other (neurovascular intact exam on left lower extremity, slight swelling at left lower extremity but no tenderness or erythema or infection indication. pt walk with walker). negative: Pedal edema Neurologic/Psychiatric: positive: Oriented x3, Motor nml, Sensation nml. negative: Weakness, Sensory loss, Facial droop, Slurred/abnml speech, Depressed mood/affect - LABS Result Diagrams: 11/14/21 06:15 11/14/21 06:15 - FOLLOW UP Follow Up: You were found to have left hip fracture. you had hip fracture repaired by orthopedics. You chose to be d/c to home instead of SNF. You are prescribed oxycodone PRN and Tylenol PRN for pain control. Eliquis bid is prescribed for your focal venous thrombosis and DVT Prophylaxis. You may followup with your PCP continue to monitor and manage of your venous thrombosis. Iron pill is prescribed for your iron Deficiency anemia. Home health Physical therapist, occupational therapist, home health RN and aide are arranged for you. You may followup with orthopedics surgeon in one week or early as needed. You may follow-up with your PCP in one to two weeks, follow-up with orthopedics Dr. Soni in one week or earlier as needed. should your symptoms return or worsen, you may present to the ER or call 911 for help - TIME SPENT Time Spent in Discharge (Minutes): 30"
== END 2021-11-14 16:00 | disposition home health service (06) | DRG 481 ==
LOC: EDUNIT# → ED 01:20 → MS2 08:02
PROVIDERS: ADMIT Specialist; ATTEND Nurse Practitioner Gerontology
PROC: 0QS706Z Reposition Left Upper Femur with Intramedullary Internal Fixation Device, Open Approach (ICD-10-PCS; principal; 2021-11-10 12:30)
DX: S72.142A Displaced intertrochanteric fracture of left femur, initial encounter for closed fracture (principal); E87.1 Hypo-osmolality and hyponatremia; W01.0XXA Fall on same level from slipping, tripping and stumbling without subsequent striking against object, initial encounter; M62.82 Rhabdomyolysis; R94.4 Abnormal results of kidney function studies; Z20.822 Contact with and (suspected) exposure to COVID-19; Z53.20 Procedure and treatment not carried out because of patient's decision for unspecified reasons; I82.462 Acute embolism and thrombosis of left calf muscular vein; D50.9 Iron deficiency anemia, unspecified; Y92.008 Other place in unspecified non-institutional (private) residence as the place of occurrence of the external cause; L82.1 Other seborrheic keratosis; R74.8 Abnormal levels of other serum enzymes; Z88.8 Allergy status to other drugs, medicaments and biological substances
CPT/HCPCS: 36415; 73502; 80048; 80053; 81003; 82550; 82607; 82728; 83540; 83605; 83615; 83690; 84466; 85025; 85045; 85730; 87631; 93971; 96360; 96361; 97116; 97162; 97166; 97530; 99284; 99285; A9270; J1170; J1650; J7120; 0202U; 81001; 87086

== ENCOUNTER 2021-12-22 11:08 | Outpatient (CLI) | payer MEDICARE ==
--- NOTE | 2021-12-23 15:49 | XRAY Report ---
PROCEDURE: Hip 2 View LT INDICATIONS: HIP RODDING TECHNIQUE: 2 views of the hip were acquired. COMPARISON: X-ray hip and pelvis 11/09/2021 FINDINGS: Bones: There is been interval screw and sourav fixation of the right intertrochanteric fracture. There i s good anatomic alignment. Fracture lucencies persist. Hardware is intact without evidence of hardwar e fracture. No suspicious bony lesions. The visualized pelvic ring appears intact. Soft tissues: No suspicious soft tissue calcifications or masses. IMPRESSION: Left femoral fixation as above. Reviewed by: Elaine West MD on 12/23/2021 3:48 PM PST Approved by: Elaine West MD on 12/23/2021 3:48 PM PST Station ID: [id number]
== END 2021-12-22 11:09 | disposition home or self-care (01) ==
LOC: DI.WOS 11:08
PROVIDERS: ATTEND Orthopaedic Surgery
DX: S72.142A Displaced intertrochanteric fracture of left femur, initial encounter for closed fracture (principal)

== ENCOUNTER 2022-02-16 06:00 | Outpatient (CLI) | payer MEDICARE ==
--- NOTE | 2022-02-16 14:56 | XRAY Report ---
PROCEDURE: Femur LT INDICATIONS: HIP ORIF TECHNIQUE: 2 AP and 2 lateral views of the femur were acquired. COMPARISON: Left hip radiographs 11/09/2021 and 12/22/2021.. FINDINGS: Bones: Postsurgical changes again seen from intratrochanteric fracture fixation with an intramedullar y nail with proximal dynamic screws and distal locking screws. Hardware components are in expected po sitions. No acute osseous abnormality. Soft tissues: No suspicious soft tissue calcifications or masses. IMPRESSION: Stable postsurgical changes in alignment from proximal femoral fracture fixation. Reviewed by: Darryn Anne MD on 02/16/2022 2:55 PM PDT Approved by: Darryn Anne MD on 02/16/2022 2:55 PM PDT Station ID: [id number]
== END 2022-02-16 23:59 | disposition home or self-care (01) ==
LOC: DI.WOS 06:00
PROVIDERS: ATTEND Orthopaedic Surgery
DX: S72.142D Displaced intertrochanteric fracture of left femur, subsequent encounter for closed fracture with routine healing (principal)